=== PATIENT | female | born 1980 | race Two or more races ===

== ENCOUNTER 2021-03-14 15:06 | Emergency (ER) | payer BC, OTHER, SELFPAY ==
--- NOTE | 2021-03-14 | ECG_ITS ---
Test Reason : GENERAL Blood Pressure : / mmHG Vent. Rate : 086 BPM Atrial Rate : 086 BPM P-R Int : 124 ms QRS Dur : 078 ms QT Int : 370 ms P-R-T Axes : 074 001 018 degrees QTc Int : 442 ms Normal sinus rhythm Normal ECG When compared with ECG of 24-MAR-2019 14:55, No significant change was found Referred By: Generic ED Physician Electronically Signed By:JUAN FIELD
--- NOTE | ~2021-03-14 | XR_ITS ---
EXAMINATION: XR CHEST CLINICAL INFORMATION: Cough, shortness of breath COMPARISON: 12/03/2019 TECHNIQUE: 2 views of the chest were obtained. FINDINGS: The right middle lobe pneumonia previously seen has completely resolved and there is now no significant abnormality noted involving the heart, lungs, mediastinum, bony thorax or soft tissues. XR/XR chest 2V IMPRESSION: Normal chest. Resolved right pneumonia
[2021-03-14 15:21] VITALS: BP 138/103; PULSE 99; RESP 20; TEMP 36.9; O2SAT 93; BMI 30.9
[2021-03-14 16:00] VITALS: BP 137/72; PULSE 85; RESP 16; TEMP 36.7; O2SAT 99
--- NOTE | 2021-03-14 16:04 | ED_ITS ---
HPI - General Adult General Chief complaint: General Medical Stated complaint: Chest pain/Cough Time Seen by Provider: 03/14/21 15:55 Source: patient Mode of arrival: ambulatory Limitations: no limitations History of Present Illness HPI narrative: 40-year-old female with a history of seasonal allergies here with complaints of dry cough, some shortness of breath and chest wall pain for the last few days. The patient has had coughing, sneezing, itchy eyes and runny nose for the last 2-3 weeks. She contributes this to her allergies. No recent travel. No OCP use. No history of blood clots. Received COVID vaccine 3 weeks ago Related Data Previous Rx's Medication Instructions Recorded benzonatate [Tessalon Perles] 100 mg PO BID PRN #10 cap 03/14/21 cetirizine 5 mg PO DAILY #30 tab 03/14/21 prednisone 40 mg PO DAILY #10 tab 03/14/21 Allergies Allergy/AdvReac Type Severity Reaction Status Date / Time No Known Allergies Allergy Unverified 07/23/20 15:25 [No Known Allergies*] ciprofloxacin [Ciloxan] AdvReac Unknown eye burning Verified 03/12/20 00:00 Review of Systems Review of Systems: Yes all other systems are reviewed and are negative Constitutional: Constitutional: Reports no additional constitutional compla ints, Denies body ache(s), Denies chills, Denies fever(s), Denies headache(s) and Denies weakness Eyes: Eyes: Reports no additional eye complaints and Denies change in vision ENT: Reports system reviewed and no additional complaints, except as documented, Denies dizziness, Denies headache(s), Denies nasal congestion, Denies nasal discharge and Denies neck pain Cardiovascular: Cardiovascular: Reports no additional cardiovascular complaints, Reports chest pain, Denies leg edema and Reports dyspnea Respiratory: Respiratory: Reports no additional respiratory complaints, Reports cough and Reports dyspnea Gastrointestinal: Gastrointestinal: Reports no additional gastrointestinal complaints, Denies abdominal pain, Denies diarrhea, Denies nausea and Denies vomiting Genitourinary: Genitourinary: Reports no additional female genitourinary complaints and Denies urinary incontinence Musculoskeletal: Musculoskeletal: Reports no additional musculoskeletal complaints, Denies back pain, Denies arthralgias, Denies joint swelling, Denies neck pain, Denies numbness and Denies tingling Integumentary/Breasts: Skin/Breast: Reports system reviewed and no additional complaints, except as docu and Denies rash Neurologic: Reports system reviewed and no additional complaints, except as documented, Denies Abnormal speech present, Denies dizziness, Denies headache(s), Denies numbness, Denies tingling and Denies weakness PMFSH Past Medical History Attestation statement: The following information was validated with the patient. Source: old records reviewed and nursing notes reviewed Surgical History Previous section S/P ACL reconstruction Social History Social History Advance Directives: No Advance Directives Information Provided: No Patient : No Physical Exam Vital Signs: Vital Signs: Last Vital Signs Temp 98.1 F 03/14/21 16:00 Pulse 85 03/14/21 16:00 Resp 16 03/14/21 16:00 BP 137/72 03/14/21 16:00 Pulse Ox 99 03/14/21 16:00 Body Mass Index 30.9 Const: General: cooperative, healthy appearing, comfortable and no acute distress Orientation/consciousness: patient oriented x3 Limitations: no limitations HENMT: Head: Yes normal to inspection Ears: hearing grossly normal bilaterally General nose exam: Normal external nose present Face and sinus: Yes normal facial exam Mouth: Normal oral and palatal mucosa present Throat: Yes posterior oropharynx normal Eyes: Other: Conjunctiva are injected. There is some mild swelling around the eyes with some clear drainage General: appearance normal, both eyes and all related structures Pupils: Equal, round and reactive pupils present Neck: Neck: Yes normal visual inspection, Yes full ROM and Yes no lymphadenopathy Chest: Other: Chest tender to palpate Chest palpation & inspection: normal inspection of the chest Resp: Other: Mild expiratory wheezing, prolonged expiration Effort & Inspection: normal respiratory effort Cardio: Rate: regular rate Rhythm: regular rhythm Peripheral pulses: Peripheral pulses 2+ throughout GI: Inspection: Yes normal to inspection Palpation (GI): Soft to palpation and nontender Auscultation: normal bowel sounds Back/Spine/Pelvis: Thoracic/Lumbar Spine: thoracic and lumbar spine normal to inspection Skin: General skin exam: no rashes or lesions noted Neuro: General: patient oriented x3, no focal motor deficits and normal sensa tion to monofilament Cranial nerves: Yes Equal, round and reactive pupils present Cognition (Neuro): normal cognition Speech: No Abnormal speech present Gait exam (Neuro): Normal gait present Motor exam (neuro): 5/5 m otor strength present throughout Extrem: General: Yes normal to inspection, Yes no pedal edema and Yes no calf tenderness Course Course Course Narrative: 40 yo female here with complaints of some reproducible chest wall pain with associated cough and mild shortness of breath. Patient also complaining of some allergic rhinitis symptoms. Will check chest x-ray, EKG, COVID screen, labs. Provide analgesia 1800-chest x-ray negative. EKG shows no ischemic changes. Labs are unremar kable. COVID screen negative. Blood pressure trending down. Likely viral URI with allergic rhinitis. Reviewed findings with patient. Reviewed feeling improved after receiving albuterol 2 puffs. Will send home with MDI. Reviewed worrisome signs and symptoms when to return to the emergency department. Comfortable discharge home. Medical Decision Making MDM Narrative Medical decision making narrative: Pneumonia, pe, viral syndrome, acs X-ray shows no underlying pneumonia. Less likely PE with no hypoxia, tachypnea, tachycardia and clinical signs and symptoms concerning for dvt. PERC 0. Less likely ACS with symptoms greater than 24 hours with a negative troponin and EKG which shows no ischemic changes Medical Records Medical records reviewed: Yes I reviewed the patient's medical records. Lab Data Lab results reviewed: Yes I reviewed the patient's lab results. Result diagrams: 03/14/21 16:26 03/14/21 16:26 Labs: Lab Results 03/14/21 03/14/21 03/14/21 Range/Units 16:26 16:26 16:26 WBC 9.0 (4.8-10.8) X10*3/uL RBC 3.85 L (4.20-5.50) X10*6/uL Hgb 12.8 (12.0-16.0) g/dl Hct 37.4 (37-47) % MCV 97.1 (80-98) fL MCH 33.2 H (27.0-33.0) pg MCHC 34.2 (31.0-35.0) g/dl RDW 12.5 (11.0-16.0) % Plt Count 233 (160-400) X10*3/uL MPV 10.9 (9.4-12.3) fL Immature Gran % (Auto) 0.3 (0.0-0.4) % Neut % (Auto) 63.1 (45-73) % Lymph % (Auto) 25.9 (20-40) % Cecil % (Auto) 5.5 (2-11) % Eos % (Auto) 4.8 H (0-4) % Baso % (Auto) 0.4 (0-2) % Lymph # (Auto) 2.3 (1.2-4.9) X10*3/uL [place] # (Auto) 0.5 (0.1-1.2) X10*3/uL Eos # (Auto) 0.4 (0.0-0.4) X10*3/uL Baso # (Auto) 0.0 (0.0-0.2) X10*3/uL Abs Immat Gran (auto) 0.03 (0.00-0.03) X10*3/uL Absolute Neuts (auto) 5.7 (2.0-8.3) X10*3/uL Absolute Nucleated RBC 0.000 (0.0-0.012) X10*3/uL Nucleated RBC % (auto) 0.0 (0.0-0.2) /100WBC PT 11.3 (10.8-13.0) SEC INR 1.0 (0.9-1.1) Sodium 140 (135-145) mmol/L Potassium 3.8 (3.3-5.1) mmol/L Chloride 108 (96-108) mmol/L Carbon Dioxide 23 (22-29) mmol/L Anion Gap 13 (12-20) BUN 15 (9-16) mg/dL Creatinine 0.86 (0.5-1.4) mg/dL Estim Creat Clear Calc 90.8 Estimated GFR > 60 Random Glucose 91 (60-115) mg/dL Calcium 8.9 (8.4-10.2) mg/dL Magnesium 2.0 (1.6-2.6) mg/dL Total Bilirubin 0.7 (0.0-1.0) mg/dL Direct Bilirubin 0.2 (0.0-0.5) mg/dL AST 72 H (5-31) U/L ALT 113 H (0-31) U/L Alkaline Phosphatase 89 (39-117) U/L Troponin I High Sens (<3.5-17.0) ng/L Total Protein 6.9 (6.5-8.0) g/dL Albumin 4.3 (3.5-5.0) g/dL COVID-19 (NAS) (Negative) COVID-19 Clin Com 03/14/21 03/14/21 Range/Units 16:26 16:27 WBC (4.8-10.8) X10*3/uL RBC (4.20-5.50) X10*6/uL Hgb (12.0-16.0) g/dl Hct (37-47) % MCV (80-98) fL MCH (27.0-33.0) pg MCHC (31.0-35.0) g/dl RDW (11.0-16.0) % Plt Count (160-400) X10*3/uL MPV (9.4-12.3) fL Immature Gran % (Auto) (0.0-0.4) % Neut % (Auto) (45-73) % Lymph % (Auto) (20-40) % [place] % (Auto) (2-11) % Eos % (Auto) (0-4) % Baso % (Auto) (0-2) % Lymph # (Auto) (1.2-4.9) X10*3/uL Cecil # (Auto) (0.1-1.2) X10*3/uL Eos # (Auto) (0.0-0.4) X10*3/uL Baso # (Auto) (0.0-0.2) X10*3/uL Abs Immat Gran (auto) (0.00-0.03) X10*3/uL Absolute Neuts (auto) (2.0-8.3) X10*3/uL Absolute Nucleated RBC (0.0-0.012) X10*3/uL Nucleated RBC % (auto) (0.0-0.2) /100WBC PT (10.8-13.0) SEC INR (0.9-1.1) Sodium (135-145) mmol/L Potassium (3.3-5.1) mmol/L Chloride (96-108) mmol/L Carbon Dioxide (22-29) mmol/L Anion Gap (12-20) BUN (9-16) mg/dL Creatinine (0.5-1.4) mg/dL Estim Creat Clear Calc Estimated GFR Random Glucose (60-115) mg/dL Calcium (8.4-10.2) mg/dL Magnesium (1.6-2.6) mg/dL Total Bilirubin (0.0-1.0) mg/dL Direct Bilirubin (0.0-0.5) mg/dL AST (5-31) U/L ALT (0-31) U/L Alkaline Phosphatase (39-117) U/L Troponin I High Sens < 3.5 (<3.5-17.0) ng/L Total Protein (6.5-8.0) g/dL Albumin (3.5-5.0) g/dL COVID-19 (NAS) Negative (Negative) COVID-19 Clin Com See Note Imaging Data Chest x-ray: Attestation: I personally reviewed and interpreted this imaging study as follows: Radiologist's impression: [facility] [place] [id number] ReportSigned Patient: Lina Pedersen LMR#: [id number]: 1980Acct:[id number]/Sex: 40 / FADM Date: 03/14/21Loc: [address]: Ordering Physician: CJ RENEE NP Date of Service: 03/14/21 Procedure(s): XR chest 2V Accession Number(s): [id number] cc: CJ RENEE NP~ EXAMINATION: XR CHEST CLINICAL INFORMATION: Cough, shortness of breath COMPARISON: 12/03/2019 TECHNIQUE: 2 views of the chest were obtained. FINDINGS: The right middle lobe pneumonia previously seen has completely resolved and there is now no significant abnormality noted involving the heart, lungs, mediastinum, bony thorax or soft tissues. XR/XR chest 2V IMPRESSION: Normal chest. Resolved right pneumonia ECG Data Attestation: I personally reviewed and interpreted this ECG as follows: Interpretation: Normal sinus rhythm with a rate of 86, normal NE, normal QRS, normal QTC Discharge Plan Discharge Clinical Impression: Viral URI, Allergic rhinitis Patient Disposition: Home, Self-Care Instructions: Acute Bronchitis (ED), Allergies (ED) Additional Instructions: Increase fluids, rest Prescriptions: New prednisone 20 mg tablet 40 mg PO DAILY Qty: 10 RF: 0 cetirizine 5 mg tablet 5 mg PO DAILY Qty: 30 RF: 0 benzonatate [Tessalon Perles] 100 mg capsule 100 mg PO BID PRN (Reason: cough) Qty: 10 RF: 0 Referrals: Po,Karen Bryan MD [Primary Care Provider] - 2 days Stand Alone Forms: Work/School Release
[2021-03-14 16:35] LABS: MANUAL DIFF FLAG NO
[2021-03-14] MEDS: Benzonatate 100 MG CAPSULE 200 MG PO (16:36)
[2021-03-14] MEDS: Ketorolac Tromethamine 30 MG/ML VIAL IVPUSH (16:36)
[2021-03-14 16:37] LABS: Basophils Percent Auto 0.4 % (0-2); Eosinophils Absolute Auto 0.4 X10*3/uL (0.0-0.4); Eosinophils Percent Auto 4.8 % (0-4); Hematocrit 37.4 % (37-47); Hemoglobin 12.8 g/dl (12.0-16.0); Imm Gran Abs Auto 0.03 X10*3/uL (0.00-0.03); Imm Gran Pct Auto 0.3 % (0.0-0.4); Lymphocytes Absolute Auto 2.3 X10*3/uL (1.2-4.9); Lymphocytes Percent Auto 25.9 % (20-40); Mean Corpuscular HGB Conc 34.2 g/dl (31.0-35.0); Mean Corpuscular Hemoglobin 33.2 pg (27.0-33.0); Mean Corpuscular Volume 97.1 fL (80-98); Mean Platelet Volume 10.9 fL (9.4-12.3); Monocytes Absolute Auto 0.5 X10*3/uL (0.1-1.2); Monocytes Percent Auto 5.5 % (2-11); Neutrophils Absolute Auto 5.7 X10*3/uL (2.0-8.3); Neutrophils Percent Auto 63.1 % (45-73); Platelet Count 233 X10*3/uL (160-400); Red Blood Count 3.85 X10*6/uL (4.20-5.50); Red Cell Distribution Width 12.5 % (11.0-16.0)
[2021-03-14 16:48] LABS: Prothrombin Time 11.3 SEC (10.8-13.0)
[2021-03-14 16:50] LABS: COVID-19 Test Negative (Negative); IDNOW Serial# 9DD0AD1C
[2021-03-14 17:01] LABS: Alanine Aminotransferase 113 U/L (0-31); Albumin Level 4.3 g/dL (3.5-5.0); Alkaline Phosphatase 89 U/L (39-117); Anion Gap 13 (12-20); Aspartate Amino Transferase 72 U/L (5-31); Bilirubin Direct 0.2 mg/dL (0.0-0.5); Bilirubin Total 0.7 mg/dL (0.0-1.0); Blood Urea Nitrogen 15 mg/dL (9-16); Calcium 8.9 mg/dL (8.4-10.2); Carbon Dioxide 23 mmol/L (22-29); Chloride 108 mmol/L (96-108); Creatinine Clr Calc Pharmacy 90.8; Estimated Glomerular Filt Rate > 60; Glucose Random 91 mg/dL (60-115); Potassium 3.8 mmol/L (3.3-5.1); Sodium 140 mmol/L (135-145); Total Protein 6.9 g/dL (6.5-8.0)
[2021-03-14 17:06] LABS: Troponin-I High Sensitivity < 3.5 ng/L (<3.5-17.0)
[2021-03-14] MEDS: Albuterol Sulfate 90 MCG 8 GM INHALER 2 PUFF INHALE (17:25)
== END 2021-03-14 18:20 | disposition home or self-care (01) ==
PROVIDERS: Nurse Practitioner Family; Emergency Provider Emergency Medicine; PCP Internal Medicine
DX: J06.9 Acute upper respiratory infection, unspecified (principal); J30.9 Allergic rhinitis, unspecified; R07.9 Chest pain, unspecified; R05 Cough; Z20.822 Contact with and (suspected) exposure to COVID-19; Z79.899 Other long term (current) drug therapy
CPT/HCPCS: 36415; 71046; 80048; 80076; 83735; 84484; 85025; 85610; 87635; 93005; 96374; 99284; J1885

== ENCOUNTER 2021-08-13 08:05 | Outpatient (REF) | payer OTHER, BC, SELFPAY ==
--- NOTE | ~2021-08-13 | XR_ITS ---
EXAMINATION: XR KNEE, LEFT CLINICAL INFORMATION: Left knee pain. COMPARISON: 06/10/2019 TECHNIQUE: Three views of the left knee. FINDINGS: There is no evidence of acute fracture or dislocation of the left knee. No left knee effusion is appreciated. There is minimal narrowing of the medial joint space compartment with some marginal spurring. There is some mild spurring undersurface of the patella. Post surgical change appears present in the distal femur and proximal tibia related to anterior collateral ligament surgery. XR/XR knee LT 3V IMPRESSION: No acute fracture or dislocation of the left knee. Mild degenerative change about the patellofemoral joint and medial joint space compartment.
== END 2021-08-13 08:06 | disposition home or self-care (01) ==
LOC: HO.XRAY 08:05
PROVIDERS: PCP Internal Medicine; Visit Provider Nurse Practitioner Family
DX: M25.562 Pain in left knee (principal)
CPT/HCPCS: 73562

== ENCOUNTER → 2021-08-26 14:43 | Outpatient (BNVA) | payer OTHER, BC, SELFPAY | PROVIDERS: Visit Provider Orthopaedic Surgery | DX: M23.8X2 Other internal derangements of left knee (principal); M25.562 Pain in left knee; Z87.891 Personal history of nicotine dependence; Z98.890 Other specified postprocedural states; Z88.1 Allergy status to other antibiotic agents | CPT/HCPCS: 99212 ==

== ENCOUNTER 2021-12-24 08:06 | Outpatient (REF) | payer BC, OTHER, SELFPAY ==
--- NOTE | ~2021-12-24 | MR_ITS ---
EXAMINATION: MR KNEE WITHOUT CONTRAST, LEFT CLINICAL INFORMATION: Left knee pain. COMPARISON: Radiographs 08/13/2021. MRI 09/23/2019. TECHNIQUE: MRI of the knee without contrast was performed using routine sequences on a high-field scanner. FINDINGS: MENISCI: Medial Meniscus: Intact Lateral Meniscus: Intact LIGAMENTS: Cruciate: The ACL graft appears to be intact. There is prominent postsurgical metallic artifact partially obscuring visualization. There is an 8 mm rounded focus of intermediate signal anterior to the distal graft on sagittal image 12 which may represent synovitis, frayed graft fibers and/or scarring. The posterior cruciate ligament appears intact. Collateral: Intact EXTENSOR MECHANISM: Intact ARTICULAR CARTILAGE/BONE: Patellofemoral Compartment: Minimal focal cartilage signal heterogeneity of the medial trochlea inferiorly. Medial Compartment: Minimal cartilage signal heterogeneity along the lateral aspect of the weightbearing femoral condyle. Lateral Compartment: Normal JOINT FLUID AND BURSAE: Trace joint effusion. Mild scarring along the posterior inferior aspect of Hoffa's fat pad. MR/MR knee LT wo con IMPRESSION: 1. The ACL graft appears predominantly intact, partially obscured by micrometallic artifact. Anterior to the distal graft is a rounded focus of intermediate signal which could represent frayed graft fibers, synovitis and/or scarring. Trace joint effusion. 2. No definite meniscal tear.
== END 2021-12-24 08:07 | disposition home or self-care (01) ==
LOC: HO.MRI 08:06
PROVIDERS: Visit Provider Orthopaedic Surgery
DX: M23.8X2 Other internal derangements of left knee (principal); M25.562 Pain in left knee
CPT/HCPCS: 73721

== ENCOUNTER → 2022-01-13 08:51 | Outpatient (BNVA) | payer BC, OTHER, SELFPAY | PROVIDERS: PCP Internal Medicine; Visit Provider Orthopaedic Surgery ==

== ENCOUNTER 2022-05-31 12:39 | Outpatient (REF) | payer BC, OTHER, SELFPAY ==
[2022-05-31 13:24] LABS: Influenza A PCR NEGATIVE (Negative); Influenza B PCR NEGATIVE (Negative); Resp Syncy Virus RNA Qual PCR NEGATIVE (Negative); SARS COV2 PCR INHOUSE POSITIVE (Negative)
== END 2022-05-31 12:40 | disposition home or self-care (01) ==
LOC: HO.LNP 12:39
PROVIDERS: Visit Provider Physician Assistant
DX: Z20.822 Contact with and (suspected) exposure to COVID-19 (principal)
CPT/HCPCS: 0241U

== ENCOUNTER 2022-06-02 16:31 | Emergency (ER) | payer BC, SELFPAY ==
--- NOTE | ~2022-06-02 | XR_ITS ---
EXAMINATION: XR CHEST CLINICAL INFORMATION: Chest tightness and difficulty breathing COMPARISON: Chest x-ray 03/14/2021 TECHNIQUE: Frontal view of the chest was obtained. FINDINGS: The lungs are clear. No airspace consolidation, pleural effusion, or pneumothorax. The cardiomediastinal silhouette is within normal limits. No acute osseous injury. XR/XR chest 1V IMPRESSION: No acute pulmonary process.
[2022-06-02 18:01] VITALS: BP 128/99; PULSE 105; RESP 18; TEMP 36.6; O2SAT 97; BMI 32.5
--- NOTE | 2022-06-02 18:05 | ECG_ITS ---
Test Reason : CHEST PAIN Blood Pressure : / mmHG Vent. Rate : 097 BPM Atrial Rate : 097 BPM P-R Int : 120 ms QRS Dur : 078 ms QT Int : 350 ms P-R-T Axes : 071 016 035 degrees QTc Int : 444 ms Normal sinus rhythm Nonspecific ST abnormality Borderline ECG When compared with ECG of 14-MAR-2021 16:08, No significant change was found Referred By: Generic ED Physician Electronically Signed By:JUAN FIELD
[2022-06-02 18:21] LABS: MANUAL DIFF FLAG NO
[2022-06-02 18:30] LABS: Basophils Percent Auto 0.3 % (0-2); Eosinophils Percent Auto 0.5 % (0-4); Hematocrit 36.7 % (37.0-47.0); Hemoglobin 12.4 g/dl (12.0-16.0); Imm Gran Abs Auto 0.06 X10*3/uL (0.00-0.03); Imm Gran Pct Auto 0.7 % (0.0-0.4); Lymphocytes Absolute Auto 1.9 X10*3/uL (1.2-4.9); Lymphocytes Percent Auto 21.5 % (20-40); Mean Corpuscular HGB Conc 33.8 g/dl (31.0-35.0); Mean Corpuscular Hemoglobin 30.5 pg (27.0-33.0); Mean Corpuscular Volume 90.4 fL (80.0-98.0); Mean Platelet Volume 10.9 fL (9.4-12.3); Monocytes Absolute Auto 0.5 X10*3/uL (0.1-1.2); Monocytes Percent Auto 6.2 % (2-11); Neutrophils Absolute Auto 6.2 x10*3/uL (2.0-8.3); Neutrophils Percent Auto 70.8 % (45-73); Platelet Count 259 X10*3/uL (160-400); Red Blood Count 4.06 X10*6/uL (4.20-5.50); White Blood Count 8.7 X10*3/uL (4.8-10.8)
[2022-06-02 18:35] LABS: Anion Gap 14 (12-20); Blood Urea Nitrogen 17 mg/dL (9-16); Calcium 9.2 mg/dL (8.4-10.2); Carbon Dioxide 23 mmol/L (22-29); Chloride 106 mmol/L (96-108); Estimated Glomerular Filt Rate > 60; Glucose Random 93 mg/dL (60-115); Potassium 3.6 mmol/L (3.3-5.1); Sodium 139 mmol/L (135-145)
[2022-06-02 18:43] LABS: Troponin-I High Sensitivity < 3.5 ng/L (<3.5-17.0)
--- NOTE | 2022-06-02 23:35 | ED_ITS ---
HPI - SOB/Dyspnea General Chief Complaint: Dyspnea Stated Complaint: diff breathing Time Seen by Provider: 06/02/22 23:35 Source: patient Mode of arrival: ambulatory Limitations: no limitations History of Present Illness HPI Narrative: Patient COVID positive over the past 10 days now with worsening cough and anxiet y elicited complaint: shortness of breath and cough Onset (ago): week(s) Context: recent illness Timing: constant Severity: mild Exacerbating factors: lying flat Relieving factors: nothing Associated symptoms: denies other symptoms Related Data Previous Rx's Medication Instructions Recorded cetirizine 5 mg tablet 5 mg PO DAILY #30 tabs 03/14/21 phentermine 37.5 mg capsule 37.5 mg PO DAILY 30 days #30 caps 06/04/21 sodium chloride 0.65 % nasal spray 2 spray intranasal Q2H PRN dry 06/04/21 aerosol (Saline Nasal) nasal passages 30 days #60 mL hydrocortisone 2.5 % topical cream 1 appl topical BID PRN skin 10/15/21 irritation #20 grams nitrofurantoin 100 mg PO BID 5 days #10 caps 05/31/22 monohydrate/macrocrystals 100 mg capsule (Macrobid) hydroxyzine HCl 25 mg tablet 25 mg PO TID PRN anxiety #20 tabs 06/02/22 [id number] 2.5 20 ml PO Q4H PRN cough #118 mL 06/02/22 mg-5 mg-50 mg/5 mL oral liquid (Robitussin Cough and Cold CF) Allergies Allergy/AdvReac Type Severity Reaction Status Date / Time ciprofloxacin [Ciloxan] AdvReac Unknown eye burning Verified 05/31/22 09:08 Review of Systems Constitutional: Constitutional: Reports no additional constitutional complaints Eyes: Eyes: Reports no additional eye complaints ENT: Denies dizziness Cardiovascular: Cardiovascular: Reports no additional cardiovascular comp laints Respiratory: Respiratory: Reports as per HPI Gastrointestinal: Gastrointestinal: Reports no additional gastrointestinal complaints Genitourinary: Genitourinary: Reports no additional female genitourinary complaints Musculoskeletal: Musculoskeletal: Reports no additional musculoskeletal complaints Integumentary/Breasts: Skin/Breast: Denies rash Neurologic: Reports system reviewed and no additional complaints, except as documented, Denies dizziness and Denies Sensory deficit (Neuro) Psychiatric: Psychiatric: Denies anxiety [facility] Past Medical History Surgical History History of knee surgery Previous section S/P ACL reconstruction Family History Family History Mother No problems noted. Father No problems noted. Social History Social History Housing: House Alcohol intake: never Patient Tobacco Use Status: Former Tobacco user (10 years ago) Quit Date: 10 years ago e-Cigarette/Vaping Use: Never Used Second Hand Smoke Exposure: No service: No Current occupational status: employed Physical Exam Vital Signs: Vital Signs: Last Vital Signs Temp 97.9 F 06/02/22 18:01 Pulse 105 H 06/02/22 18:01 Resp 18 06/02/22 18:01 BP 128/99 H 06/02/22 18:01 Pulse Ox 97 06/02/22 18:01 O2 Del Method 06/02/22 18:01 BMI result Body Mass Index 32.5 Const: Other: continually coughing General: healthy appearing Nutritional Appearance: a verage body habitus Orientation/consciousness: oriented to person and patient oriented x3 Limitations: no limitations HEENT: Head: Yes normal to inspection Ears: external ears normal General nose exam: Normal external nose present Mouth: Normal oral and palatal mucosa present and oropharynx normal Throat: Yes posterior oropharynx normal Eyes: General: appearance normal, both eyes and all related structures Neck: Other: supple Neck: Yes normal visual inspection Chest: Chest palpation & inspection: normal inspection of the chest Resp: Auscultation: clear to auscultation bilaterally Cardio: Jugular venous distension: no JVD Rate: regular rate Rhythm: regular rhythm Heart sounds: S1 normal heart sound present and S2 normal heart sound present GI: Inspection: Yes normal to inspection Palpation (GI): Soft to palpation, nontender and No hepatosplenomegaly present Auscultation: normal bowel sounds : General: Yes no CVA tenderness Back/Spine/Pelvis: Back: no CVA tenderness Skin: General skin exam: no rashes or lesions noted Neuro: General: oriented to person and patient oriented x3 Cranial nerves: Yes CN's II-XII intact bilaterally Motor exam (neuro): 5/5 motor strength present throughout Sensory Exam: No Sensory deficit (Neuro) Extrem: General: Yes normal to inspection Psych: Appearance: grossly normal Course Reevaluation(s) Reevaluation #1: patient with normal vitals, O2, and cxr. Will start robitussin for cough and hydroxyzine for anxiety Time: 23:43 MDM - SOB/Dyspnea Lab Data Result diagrams: 06/02/22 18:15 06/02/22 18:15 Labs: Lab Results 06/02/22 06/02/22 06/02/22 Range/Units 18:15 18:15 18:15 WBC 8.7 (4.8-10.8) X10*3/uL RBC 4.06 L (4.20-5.50) X10*6/uL Hgb 12.4 (12.0-16.0) g/dl Hct 36.7 L (37.0-47.0) % MCV 90.4 (80.0-98.0) fL MCH 30.5 (27.0-33.0) pg MCHC 33.8 (31.0-35.0) g/dl RDW 12.0 (11.0-16.0) % Plt Count 259 (160-400) X10*3/uL MPV 10.9 (9.4-12.3) fL Immature Gran % (Auto) 0.7 H (0.0-0.4) % Neut % (Auto) 70.8 (45-73) % Lymph % (Auto) 21.5 (20-40) % [place] % (Auto) 6.2 (2-11) % Eos % (Auto) 0.5 (0-4) % Baso % (Auto) 0.3 (0-2) % Lymph # (Auto) 1.9 (1.2-4.9) X10*3/uL [place] # (Auto) 0.5 (0.1-1.2) X10*3/uL Eos # (Auto) 0.0 (0.0-0.4) X10*3/uL Baso # (Auto) 0.0 (0.0-0.2) X10*3/uL Abs Immat Gran (auto) 0.06 H (0.00-0.03) X10*3/uL Absolute Neuts (auto) 6.2 (2.0-8.3) x10*3/uL Absolute Nucleated RBC 0.000 (0.0-0.012) X10*3/uL Nucleated RBC % (auto) 0.0 (0.0-0.2) /100WBC Sodium 139 (135-145) mmol/L Potassium 3.6 (3.3-5.1) mmol/L Chloride 106 (96-108) mmol/L Carbon Dioxide 23 (22-29) mmol/L Anion Gap 14 (12-20) BUN 17 H (9-16) mg/dL Creatinine 0.81 (0.5-1.4) mg/dL Estim Creat Clear Calc 98.0 Estimated GFR > 60 Random Glucose 93 (60-115) mg/dL Calcium 9.2 (8.4-10.2) mg/dL Troponin I High Sens < 3.5 (<3.5-17.0) ng/L Imaging Data Chest x-ray: Radiologist's impression: FINDINGS: The lungs are clear. No airspace consolidation, pleural effusion, or pneumothorax. The cardiomediastinal silhouette is within normal limits. No acute osseous injury. XR/XR chest 1V IMPRESSION: No acute pulmonary process. ? Discharge Plan Discharge Clinical Impression: COVID-19, Anxiety Patient Disposition: Home, Self-Care Instructions: Anxiety (ED), COVID-19 (Coronavirus Disease 2019) (ED) Prescriptions: New Robitussin Cough and Cold CF 2.5-5-50 mg/5 mL liquid 20 ml PO Q4H PRN (Reason: cough) Qty: 118 0RF hydroxyzine HCl 25 mg tablet 25 mg PO TID PRN (Reason: anxiety) Qty: 20 0RF No Action phentermine 37.5 mg capsule 37.5 mg PO DAILY 30 Days Qty: 30 0RF Rx Instructions: must administer 30 minutes before or 1-2 hours after breakfast sodium chloride [Saline Nasal] 0.65 % aerosol,spray 2 spray intranasal Q2H PRN (Reason: dry nasal passages) 30 Days Qty: 60 1RF cetirizine 5 mg tablet 5 mg PO DAILY Qty: 30 0RF hydrocortisone 2.5 % cream 1 appl topical BID PRN (Reason: skin irritation) Qty: 20 0RF nitrofurantoin monohyd/m-cryst [Macrobid] 100 mg capsule 100 mg PO BID 5 Days Qty: 10 0RF Rx Instructions: must administer with a meal/food Referrals: Grant,Karen Bryan MD [Primary Care Provider] - 1 week
[2022-06-03] MEDS: guaiFENesin 200 MG/10 ML 10 ML LIQUID 20 ML PO (00:34)
[2022-06-03] MEDS: hydrOXYzine HCL 25 MG TABLET PO (00:34)
== END 2022-06-03 00:37 | disposition home or self-care (01) ==
PROVIDERS: Emergency Provider Emergency Medicine; PCP Internal Medicine
DX: U07.1 COVID-19 (principal); R07.89 Other chest pain; R06.02 Shortness of breath; R05.9 Cough, unspecified; F41.1 Generalized anxiety disorder; F43.0 Acute stress reaction; Z79.899 Other long term (current) drug therapy; Z87.891 Personal history of nicotine dependence
CPT/HCPCS: 36415; 71045; 80048; 84484; 85025; 93005; 99282; 99283

== ENCOUNTER 2022-08-01 15:32 | Outpatient (REF) | payer BC, SELFPAY ==
[2022-08-02 06:06] LABS: CT PCR NOT DETECTED (Not Detect.); NG PCR NOT DETECTED (Not Detect.)
[2022-08-02 11:10] LABS: BV Int Neg Control Negative (Negative); BV Int Pos Control Positive (Positive)
[2022-08-05 03:52] LABS: HPV mRNA E6/E7 rflx Not Detected (Not Detected)
== END 2022-08-01 15:33 | disposition home or self-care (01) ==
LOC: HO.LNP 15:32
PROVIDERS: Visit Provider Advanced Practice Midwife
DX: Z01.419 Encounter for gynecological examination (general) (routine) without abnormal findings (principal); Z11.3 Encounter for screening for infections with a predominantly sexual mode of transmission
CPT/HCPCS: 87480; 87491; 87510; 87591; 87624; 87660; 88142

== ENCOUNTER 2022-08-26 13:58 | Outpatient (REF) | payer BC, SELFPAY ==
--- NOTE | ~2022-08-26 | MM_ITS ---
EXAMINATION: MM SCREENING DIGITAL BREAST TOMOSYNTHESIS, BILATERAL CLINICAL INFORMATION: Screening. Asymptomatic. The lifetime risk of breast cancer based on the Tyrer-Cuzick Model is 8.3%. COMPARISON: Mammography: None. TECHNIQUE: Digital breast tomosynthesis is performed in both the craniocaudal and mediolateral oblique views along with computer-aided detection (CAD). Synthesized 2-D images are generated from the tomosynthesis. FINDINGS: There are scattered areas of fibroglandular density (ACR BI-RADS breast composition Category b). The right breast study does not demonstrate any abnormal dominant mass or suspicious grouping of microcalcifications. Within the retroareolar region of the left breast on mediolateral oblique projection, there is question of a spiculated density for which spot compression film is recommended. No definite craniocaudal projection correlate is seen. MM/MM tomosynthesis screening BI IMPRESSION: Left breast density for further evaluation. ASSESSMENT: BI-RADS 0: Incomplete - Need Additional Imaging Evaluation RECOMMENDATION: 1. Additional views of the left breast. 2. Targeted ultrasound if warranted after review of the additional views. 3. Radiology department staff will contact the patient for additional imaging. This patient's information was entered into a reminder system with a target due date for their next mammogram.
== END 2022-08-26 13:59 | disposition home or self-care (01) ==
LOC: HO.MAMMO 13:58
PROVIDERS: Visit Provider Advanced Practice Midwife
DX: Z12.31 Encounter for screening mammogram for malignant neoplasm of breast (principal)
CPT/HCPCS: 77063; 77067

== ENCOUNTER → 2022-08-29 13:40 | Outpatient (BNVA) | payer BC, SELFPAY | PROVIDERS: PCP Obstetrics & Gynecology; Visit Provider Obstetrics & Gynecology | DX: Z30.433 Encounter for removal and reinsertion of intrauterine contraceptive device (principal) | CPT/HCPCS: 58300; 58301; J7298 ==

== ENCOUNTER 2022-09-06 14:29 | Outpatient (REF) | payer BC, SELFPAY ==
--- NOTE | ~2022-09-06 | MM_ITS ---
EXAMINATION: MM DIAGNOSTIC DIGITAL BREAST TOMOSYNTHESIS, LEFT CLINICAL INFORMATION: Recall from screening for question of architectural changes retroareolar breast on synthesized left MLO view. TC score 8%. COMPARISON: Mammography: 08/26/2022 (baseline) TECHNIQUE: Digital breast tomosynthesis is performed. 2D images are generated from the tomosynthesis. The following views are obtained: Spot MLO, standard ML. FINDINGS: There are scattered areas of fibroglandular density (ACR BI-RADS breast composition Category b). The additional views show no architectural abnormality or mass. The recent CC and MLO tomography shows no retroareolar architectural abnormality as well. Results are discussed with the patient at time of visit. MM/MM tomosynthesis added views L IMPRESSION: No architectural abnormality. No mammographic evidence of malignancy. ASSESSMENT: BI-RADS 1: Negative RECOMMENDATION: Routine annual mammography screening. This patient's information was entered into a reminder system with a target due date for their next mammogram.
== END 2022-09-06 14:30 | disposition home or self-care (01) ==
LOC: HO.MAMMO 14:29
PROVIDERS: Visit Provider Advanced Practice Midwife
DX: R92.2 Inconclusive mammogram (principal)
CPT/HCPCS: 77061; 77065

== ENCOUNTER 2023-09-13 10:58 | Outpatient (AMB) | payer BC, SELFPAY ==
--- NOTE | 2023-09-13 11:26 | MHC.PC.OV ---
Vital Signs 09/13/23 11:28 Height 5 ft 4 in Weight 202 lb 2 oz BMI 34.7 BP 120/80 Blood Pressure Location Lt brachial Position Sitting Intake Visit Reasons: Annual exam Intake Note: Patient is here today for a physical. 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: Not Required per policy Accompanied by: Self / Same As Patient Allergies ciprofloxacin [Ciloxan] Adverse Reaction (Unknown, Verified 09/13/23 11:28) eye burning Medication List - Last Reconciled 09/13/23 by Karen Burns MD cetirizine 5 mg PO DAILY fluticasone propionate 50 mcg/actuation 2 sprays intranasal DAILY hydrocortisone 2.5% 1 appl topical BID PRN hydroxyzine HCl 25 mg PO TID PRN levonorgestrel (Mirena) intrauterine sodium chloride 0.65% (Saline Nasal) 2 sprays intranasal Q2H PRN 30 days Tobacco use date assessed: 09/13/23 Dental Screening Dental Screen Date: 09/13/23 Did you have a dental visit in the last 12 months?: No Did you have a dental problem in the last 6 months where you did not have access to dental care?: No Was dental information given to patient?: Patient has dentist HPI Annual exam HPI Details 43-year-old obese female I am seeing for the 1st time has a history of anxiety. Patient is here for physical exam. ON LICENSE OF [facility] Medical History (Updated 09/13/23 @ 12:19 by Karen Burns MD) Other internal derangements of left knee Left knee pain Anxiety Breast cancer screening Counseling for control, intrauterine device COVID-19 Blepharitis, left eye Surgical History (Updated 09/13/23 @ 12:12 by Karen Burns MD) History of ankle surgery History of knee surgery Previous section S/P ACL reconstruction Family History Mother No problems noted. Father No problems noted. Social History (Updated 09/13/23 @ 12:13 by Karen Burns MD) Housing: House Alcohol intake: current Patient Tobacco Use Status: Former Tobacco user (10 years ago) Quit Date: 10 years ago Years Smoked: quit 2005 (1-2 years ) e-Cigarette/Vaping Use: Never Used Second Hand Smoke Exposure: No service: No Current occupational status: employed Cognitive needs: No Hearing needs: No Vision needs: No Female Reproductive History Menstrual Age of Menarche: 16 Questionnaire PHQ-9 Over the last 2 weeks, how often have you been bothered by any of the following problems? 1. Little interest or pleasure in doing things: not at all 2. Feeling down, depressed, or hopeless: not at all 3. Trouble falling or staying asleep, or sleeping too much: more than half the days 4. Feeling tired or having little energy: not at all 5. Poor appetite or overeating: not at all 6. Feeling bad about yourself - or that you are a failure or have let yourself or your family down: not at all 7. Trouble concentrating on things, such as reading the newspaper or watching television: not at all 8. Moving or speaking so slowly that other people could have noticed. Or the opposite - being so fidgety or restless that you have been moving around a lot more than usual: not at all 9. Thoughts that you would be better off or of hurting yourself in some way: not at all Total score: 2 Source: Developed by Drs. Nick Lock, Caprice Cardoso, Rufino Joyce and colleagues, with an educational abi from [employer]. Thrive Questionnaire Date Thrive assessed: 09/13/23 I am a: Patient What is your living situation today?: I have a steady place to live Within the past 12 months, did the food you bought not last and you didn't have the money to get more?: Never true Within the past 12 months, did you worry whether your food would run out before you got money to buy more?: Never true Do you have trouble paying for medicines?: No Do you have trouble getting transportation to medical appointments?: No Do you have trouble paying your heating and electricity bill?: No Do you have trouble taking care of your child, family member or friend?: No Do you have trouble with day-to-day activities such as bathing, preparing meals, shopping, managing finances, etc.?: No Are you currently unemployed and looking for a job?: No Are you interested in more education?: No Currently or been in a relationship where the following occur: no concerns reported AUDIT C Alcohol Use Questionnaire (AUDIT-C) 1. How often do you have a drink containing alcohol?: Never Total Score: 0 SIRISHA-7 AMB Questionnaire SIRISHA-7 Date SIRISHA - 7 assessed: 09/13/23 Feeling nervous, anxious, or on edge: 1 = Several days Not being able to stop or control worryin = Not at all Worrying too much about different things: 0 = Not at all Trouble relaxin = Not at all Being so restless that it is hard to sit still: 3 = Nearly every day Becoming easily annoyed or irritable: 0 = Not at all Feeling afraid as if something awful might happen: 0 = Not at all Total SIRISHA-7 score (0-4 normal; 5-9 mild; 10-14 moderate; 15-21 severe): 4 Source: Developed by Drs. Nick Lock, Caprice Cardoso, Rufino Joyce and colleagues, with an educational abi from [employer]. Review of Systems Const Denies poor appetite and Denies weakness Eyes Denies no additional complaints ENT Reports Normal hearing present, Denies dizziness, Denies nasal congestion, Denies tinnitus and Denies sore throat Card Denies chest pain, Denies syncope, Denies rapid heart rate and Denies dyspnea Resp Denies cough and Denies dyspnea GI Denies change in stool character, Reports constipation, Denies diarrhea, Denies nausea and Denies vomiting Denies urinary frequency, Denies difficulty voiding and Denies dysuria Neuro Reports Normal hearing present, Denies confusion, Denies dizziness, Denies syncope and Denies weakness Psych Denies confusion Physical exam (Primary Care) Vital Signs: Last Vital Signs BP 120/80 09/13/23 11:28 BMI result Body Mass Index 34.7 Tobacco/Smoking Status: Tobacco use Status Tobacco use date assessed 09/13/23 09/13/23 11:34 Patient Tobacco Use Status Former Tobacco user (10 09/13/23 11:34 years ago) e-Cigarette/Vaping Use Never Used 09/13/23 11:34 PHQ-9: PHQ-9 Score PHQ-9: Total score 2 09/13/23 11:34 Thrive Assessment: Date of Thrive Assessment Date Thrive assessed 09/13/23 09/13/23 11:34 Currently or been in a relationship where the following occur: no concerns reported Const General: alert and awake; No confusion Orientation/consciousness: No confusion HENMT Head: Yes normocephalic Ears: external ears normal and TM's normal bilaterally Face and sinus: Yes normal facial exam Mouth: moist mucous membranes Throat: Yes tonsils normal Eyes Conjunctivae: conjunctivae normal Pupils: Equal, round and reactive pupils present and Pupil accommodation reflex normal Direct Ophthalmoscopy: normal light reflex Neck Neck: No lymphadenopathy Thyroid: Thyroid normal Chest Chest palpation & inspection: normal inspection of the chest Resp Effort & Inspection: normal respiratory effort and no audible wheezes Auscultation: clear to auscultation bilaterally, no crackles, no wheezes and lung sounds not diminished Cardio Rate: regular rate Rhythm: regular rhythm Peripheral pulses: radial pulses present and dorsalis pedis present GI Palpation (GI): no masses Auscultation: normal bowel sounds and normoactive bowel sounds Rectal Exam - Female: deferred Skin General skin exam: no rashes or lesions noted Rashes: no rashes Neuro General: deep tendon reflexes 2+ bilaterally and No confusion Cranial nerves: Yes Equal, round and reactive pupils present, Yes Midline tongue present, Yes Normal hearing present and Yes Ability to bilaterally elevate shoulders present Cognition (Neuro): normal cognition Gait exam (Neuro): Normal gait present Motor exam (neuro): 5/5 motor strength present throughout Deep tendon reflexes (DTR's): Right brachioradialis reflex intensity grade: 2+, Left brachioradialis reflex intensity grade: 2+, Right patellar reflex intensity grade: 2+ and Left patellar reflex intensity grade: 2+ Extrem General: No edema Assessment and Plan Assessment & Plan (1) Annual physical exam: Code(s): Z00.00 - Encounter for general adult medical examination without abnormal findings (2) Obesity (BMI 30.0-34.9): Code(s): E66.9 - Obesity, unspecified Plan: Diet and exercise (3) Generalized anxiety disorder: Code(s): F41.1 - Generalized anxiety disorder Plan: Discussed about counseling and therapy (4) LFT elevation: Code(s): R79.89 - Other specified abnormal findings of blood chemistry Plan: Will need workup (5) Breast cancer screening by mammogram: Code(s): Z12.31 - Encounter for screening mammogram for malignant neoplasm of breast Plan: Reminded about mammogram (6) Vitiligo: Code(s): L80 - Vitiligo Orders: Orders Comprehensive Met. Panel Today Z00.00 - Encounter for general adult medical examination without abnormal findings Vitamin B12 and Folate Today Z00.00 - Encounter for general adult medical examination without abnormal findings Hepatitis B,C Profile Today R79.89 - Other specified abnormal findings of blood chemistry Lipid Panel Today E78.00 - Pure hypercholesterolemia, unspecified, R79.89 - Other specified abnormal findings of blood chemistry T Spot TB Today Z00.00 - Encounter for general adult medical examination without abnormal findings Complete Blood Count Auto Diff Today Z00.00 - Encounter for general adult medical examination without abnormal findings Free T4 (Free Thyroxine) Today Z00.00 - Encounter for general adult medical examination without abnormal findings Thyroid Stimulating Hormone Today Z00.00 - Encounter for general adult medical examination without abnormal findings US abdomen complete Today R79.89 - Other specified abnormal findings of blood chemistry Referrals Dermatology Referral L80 - Vitiligo Medications: New semaglutide (weight loss) (Wegovy) administer weeks 1 through 4 of therapy 0.25 mg (0.5 mL) subcut QWEEK 2 mL 1RF E66.9 - Obesity, unspecified Coding Level of Care Code Est Pt Prev Care 40-64y(55733) Diagnoses Annual physical exam Z00.00 Obesity (BMI 30.0-34.9) E66.9 Generalized anxiety disorder F41.1 LFT elevation R79.89 Breast cancer screening by mammogram Z12.31 Vitiligo L80
[2023-09-13 11:28] VITALS: BP 120/80; BMI 34.7
== END 2023-09-13 12:36 | disposition home or self-care (01) ==
PROVIDERS: Visit Provider Internal Medicine
DX: Z00.00 Encounter for general adult medical examination without abnormal findings (principal); E66.9 Obesity, unspecified; F41.1 Generalized anxiety disorder; Z68.34 Body mass index [BMI] 34.0-34.9, adult; R79.89 Other specified abnormal findings of blood chemistry; Z12.31 Encounter for screening mammogram for malignant neoplasm of breast; L80 Vitiligo
CPT/HCPCS: 99396

== ENCOUNTER 2023-11-28 13:16 | Outpatient (AMB) | payer BC, SELFPAY ==
--- NOTE | 2023-11-28 13:16 | A.OFFPC_ITS ---
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 per policy Accompanied by: Self / Same As Patient Allergies ciprofloxacin [Ciloxan] Adverse Reaction (Unknown, Verified 11/28/23 13:31) eye burning Medication List - Last Reconciled 11/28/23 by Darien Perez MD cetirizine 5 mg PO DAILY fluticasone propionate 50 mcg/actuation 2 sprays intranasal DAILY hydrocortisone 2.5% 1 appl topical BID PRN hydroxyzine HCl 25 mg PO TID PRN levonorgestrel (Mirena) intrauterine semaglutide (weight loss) (Wegovy) 0.25 mg (0.5 mL) subcut QWEEK sodium chloride 0.65% (Saline Nasal) 2 sprays intranasal Q2H PRN 30 days Tobacco use date assessed: 09/13/23 Dental Screening Dental Screen Date: 11/28/23 Did you have a dental visit in the last 12 months?: Yes Did you have a dental problem in the last 6 months where you did not have access to dental care?: No Was dental information given to patient?: Patient has dentist HPI cold symptoms HPI Details Patient presents for a sick visit. Reporting symptoms of sinus congestion, sore throat and difficulty swallowing. Low-grade fever. No family member is sick. No recent travel. Patient reports symptoms of malaise and fatigue. [facility] Medical History (Updated 09/13/23 @ 12:19 by Karen Burns MD) Other internal derangements of left knee Left knee pain Anxiety Breast cancer screening Counseling for control, intrauterine device COVID-19 Blepharitis, left eye Surgical History History of ankle surgery History of knee surgery Previous section S/P ACL reconstruction Family History Mother No problems noted. Father No problems noted. Social History Housing: House Alcohol intake: current Patient Tobacco Use Status: Former Tobacco user (10 years ago) Quit Date: 10 years ago Years Smoked: quit 2005 (1-2 years ) e-Cigarette/Vaping Use: Never Used Second Hand Smoke Exposure: No service: No Current occupational status: employed Cognitive needs: No Hearing needs: No Vision needs: No Female Reproductive History Menstrual Age of Menarche: 16 Questionnaire PHQ-9 Over the last 2 weeks, how often have you been bothered by any of the following problems? 1. Little interest or pleasure in doing things: not at all 2. Feeling down, depressed, or hopeless: not at all 3. Trouble falling or staying asleep, or sleeping too much: not at all 4. Feeling tired or having little energy: not at all 5. Poor appetite or overeating: not at all 6. Feeling bad about yourself - or that you are a failure or have let yourself o r your family down: not at all 7. Trouble concentrating on things, such as reading the newspaper or watching television: not at all 8. Moving or speaking so slowly that other people could have noticed. Or the opposite - being so fidgety or restless that you have been moving around a lot more than usual: not at all 9. Thoughts that you would be better off or of hurting yourself in some way: not at all Total score: 0 Depression Screening Interpretation: Negative Depression Screening Done: Yes Source: Developed by Drs. Nick Lock, Caprice Cardoso, Rufino Joyce and colleagues, with an educational abi from [employer]. Thrive Questionnaire Date Thrive assessed: 11/28/23 I am a: Patient What is your living situation today?: I have a steady place to live Within the past 12 months, did the food you bought not last and you didn't have the money to get more?: Never true Within the past 12 months, did you worry whether your food would run out before you got money to buy more?: Never true Do you have trouble paying for medicines?: No Do you have trouble getting transportation to medical appointments?: No Do you have trouble paying your heating and electricity bill?: No Do you have trouble taking care of your child, family member or friend?: No Do you have trouble with day-to-day activities such as bathing, preparing meals, shopping, managing finances, etc.?: No Are you currently unemployed and looking for a job?: No Are you interested in more education?: No Currently or been in a relationship where the following occur: no concerns reported THRIVE Score: 0 AUDIT C Alcohol Use Questionnaire (AUDIT-C) 1. How often do you have a drink containing alcohol?: 2-3 times a week 2. How many drinks containing alcohol do you have on a typical day when you are drinking?: 1 or 2 Total Score: 3 SIRISHA-7 AMB Questionnaire SIRISHA-7 Date SIRISHA - 7 assessed: 11/28/23 Feeling nervous, anxious, or on edge: 0 = Not at all Not being able to stop or control worryin = Not at all Worrying too much about different things: 0 = Not at all Trouble relaxin = Not at all Being so restless that it is hard to sit still: 0 = Not at all Becoming easily annoyed or irritable: 0 = Not at all Feeling afraid as if something awful might happen: 0 = Not at all Total SIRISHA-7 score (0-4 normal; 5-9 mild; 10-14 moderate; 15-21 severe): 0 Source: Developed by Drs. Nick Lock, Caprice Cardoso, Rufino Joyce and colleagues, with an educational abi from [employer]. Physical exam (Primary Care) Tobacco/Smoking Status: Tobacco use Status Tobacco use date assessed 09/13/23 11/28/23 13:20 Patient Tobacco Use Status Former Tobacco user (10 11/28/23 13:20 years ago) e-Cigarette/Vaping Use Never Used 11/28/23 13:20 PHQ-9: PHQ-9 Score PHQ-9: Total score 0 11/28/23 13:20 Depression Screening Interpretation: Negative Thrive Assessment: Date of Thrive Assessment Date Thrive assessed 11/28/23 11/28/23 13:20 Currently or been in a relationship where the following occur: no concerns reported Const General: cooperative and healthy appearing Nutritional Appearance: well nourished Orientation/consciousness: patient oriented x3 Limitations: no limitations HENMT Head: Yes normal to inspection Eyes General: appearance normal, both eyes and all related structures Neck Neck: Yes normal visual inspection Chest Chest palpation & inspection: normal palpation of entire chest wall Resp Effort & Inspection: normal respiratory effort Neuro General: patient oriented x3 Telehealth Telehealth Location of provider rendering services: practice address Location of patient: address on file Patient Identification confirmed using: Name, : Yes Telehealth method: voice only Patient verbally consented to treatment: Yes Patient verbally consented to billing insurance company: Yes Patient informed of any privacy concerns related to visit: Yes Assessment and Plan Assessment & Plan (1) Upper respiratory tract infection: Code(s): J06.9 - Acute upper respiratory infection, unspecified Plan: Antibiotics ordered. Increase fluid intake. Tylenol for aches and pains. If symptoms worsen, follow-up here for a recheck. Medications: New prednisone 60 mg (3 x 20 mg) PO DAILY 9 tabs 0RF azithromycin (Zithromax) 250 mg PO DAILY 5 days 6 tabs 0RF albuterol sulfate 90 mcg/actuation 1 inh inhalation QID PRN 6.7 grams 1RF shortness of breath or wheezing Coding Level of Care Code Est Pt Level 3 (38506) Diagnoses Upper respiratory tract infection J06.9
== END 2023-11-28 15:09 | disposition home or self-care (01) ==
LOC: HO.HMGH 13:16
PROVIDERS: PCP Internal Medicine; Visit Provider Internal Medicine
DX: J06.9 Acute upper respiratory infection, unspecified (principal)
CPT/HCPCS: 99213

== ENCOUNTER 2023-11-28 14:06 | Outpatient (REF) | payer BC, SELFPAY ==
[2023-11-28 14:29] LABS: Binax Internal Control QC Valid; Binax Now Covid-19 Ag Negative (Negative); Binax Performed by: HO.BONILM
== END 2023-11-28 14:07 | disposition home or self-care (01) ==
LOC: HO.HMGCLDS 14:06
PROVIDERS: PCP Internal Medicine; Visit Provider Internal Medicine
DX: Z11.52 Encounter for screening for COVID-19 (principal); J06.9 Acute upper respiratory infection, unspecified
CPT/HCPCS: 87811

== ENCOUNTER 2023-12-28 16:48 | Outpatient (AMB) | payer BC, SELFPAY ==
[2023-12-28 16:50] VITALS: BP 126/80; PULSE 98; O2SAT 99; BMI 36.4
--- NOTE | 2023-12-28 16:50 | A.OFFPC_ITS ---
Vital Signs 12/28/23 16:50 Height 5 ft 4 in Weight 212 lb BMI 36.4 BP 126/80 Blood Pressure Location Lt brachial Position Sitting Pulse 98 Pulse Source Pulse Oximeter Pulse Oximetry (%) 99 Oxygen Delivery Method Room Air Intake Visit Reasons: Weight loss medication Logger Required: No Pressure Testing Technician: Not Required per policy Accompanied by: Self / Same As Patient Allergies ciprofloxacin [Ciloxan] Adverse Reaction (Unknown, Verified 12/28/23 16:51) eye burning Medication List - Last Reconciled 12/28/23 by Karen Burns MD albuterol sulfate 90 mcg/actuation 1 inh inhalation QID PRN fluticasone propionate 50 mcg/actuation 2 sprays intranasal DAILY hydrocortisone 2.5% 1 appl topical BID PRN hydroxyzine HCl 25 mg PO TID PRN levonorgestrel (Mirena) intrauterine semaglutide (weight loss) (Wegovy) 0.25 mg (0.5 mL) subcut QWEEK sodium chloride 0.65% (Saline Nasal) 2 sprays intranasal Q2H PRN 30 days Tobacco use date assessed: 12/28/23 Dental Screening Dental Screen Date: 12/28/23 Did you have a dental visit in the last 12 months?: Yes Did you have a dental problem in the last 6 months where you did not have access to dental care?: No Was dental information given to patient?: Patient has dentist HPI Weight loss medication HPI Details 43-year-old obese female with generalize d anxiety disorder coming in for an acute problem last seen for physical in September 2023. Patient was advised to get the mammogram done. Review of the notes was seen in the [facility] in November 28 for an upper respiratory tract infection prescribed albuterol Zithromax and prednisone. [facility] Medical History (Updated 12/28/23 @ 17:09 by Karen Burns MD) Obesity (BMI 30.0-34.9) Other internal derangements of left knee Left knee pain Anxiety Breast cancer screening Counseling for control, intrauterine device COVID-19 Blepharitis, left eye Surgical History History of ankle surgery History of knee surgery Previous section S/P ACL reconstruction Family History Mother No problems noted. Father No problems noted. Social History Housing: House Alcohol intake: current Patient Tobacco Use Status: Former Tobacco user (10 years ago) Quit Date: 10 years ago Years Smoked: quit 2005 (1-2 years ) e-Cigarette/Vaping Use: Never Used Second Hand Smoke Exposure: No service: No Current occupational status: employed Cognitive needs: No Hearing needs: No Vision needs: No Female Reproductive History Menstrual Age of Menarche: 16 Questionnaire PHQ-9 Over the last 2 weeks, how often have you been bothered by any of the following problems? Depression Screening Interpretation: Negative Depression Screening Done: Yes Source: Developed by Drs. Nick Lock, Caprice Cardoso, Rufino Joyce and colleagues, with an educational abi from [employer]. Thrive Questionnaire Date Thrive assessed: 11/28/23 SIRISHA-7 AMB Questionnaire SIRISHA-7 Date SIRISHA - 7 assessed: 11/28/23 Source: Developed by Drs. Nick Lock, Caprice Cardoso, Rufino Joyce and colleagues, with an educational abi from [employer]. Physical exam (Primary Care) Vital Signs: Last Vital Signs Pulse 98 12/28/23 16:50 BP 126/80 12/28/23 16:50 Pulse Ox 99 12/28/23 16:50 Oxygen Delivery Method Room Air 12/28/23 16:50 BMI result Body Mass Index 36.4 Tobacco/Smoking Status: Tobacco use Status Tobacco use date assessed 12/28/23 12/28/23 16:52 Patient Tobacco Use Status Former Tobacco user (12/28/23 16:52 years ago) e-Cigarette/Vaping Use Never Used 12/28/23 16:52 Depression Screening Interpretation: Negative Thrive Assessment: Date of Thrive Assessment Date Thrive assessed 11/28/23 12/28/23 16:52 Const General: alert; No acute distress Eyes Conjunctivae: conjunctivae normal Resp Auscultation: clear to auscultation bilaterally Cardio Rate: regular rate Rhythm: regular rhythm GI Inspection: Yes normal to inspection Extrem General: Yes normal to inspection and No edema Assessment and Plan Assessment & Plan (1) Obesity (BMI 30.0-34.9): Code(s): E66.9 - Obesity, unspecified (2) LFT elevation: Code(s): R79.89 - Other specified abnormal findings of blood chemistry Plan: Patient is reminded about the liver function test as well as the blood work that was requested. (3) Breast cancer screening by mammogram: Code(s): Z12.31 - Encounter for screening mammogram for malignant neoplasm of breast Plan: Reminded about mammogram (4) Obesity (BMI 30-39.9): Code(s): E66.9 - Obesity, unspecified Plan: Diet and exercise Medications: New phentermine (Adipex-P) must administer 30 minutes before or 1-2 hours after breakfast 37.5 mg PO DAILY 30 tabs 0RF E66.9 - Obesity, unspecified Discontinued semaglutide (weight loss) (Catrachita) administer weeks 1 through 4 of therapy Discontinued Reason: Doctor's Order 0.25 mg (0.5 mL) subcut QWEEK 2 mL 1RF E66.9 - Obesity, unspecified Coding Level of Care Code Est Pt Level 4 (11458) Diagnoses Obesity (BMI 30.0-34.9) E66.9 LFT elevation R79.89 Breast cancer screening by mammogram Z12.31 Obesity (BMI 30-39.9) E66.9
== END 2023-12-28 17:26 | disposition home or self-care (01) ==
PROVIDERS: PCP Internal Medicine; Visit Provider Internal Medicine
DX: R79.89 Other specified abnormal findings of blood chemistry (principal); Z12.31 Encounter for screening mammogram for malignant neoplasm of breast; E66.9 Obesity, unspecified; Z68.36 Body mass index [BMI] 36.0-36.9, adult
CPT/HCPCS: 99214

== ENCOUNTER 2024-03-18 09:19 | Outpatient (AMB) | payer BC, SELFPAY ==
[2024-03-18 09:22] VITALS: BP 118/68; PULSE 75; O2SAT 98; BMI 36.7
--- NOTE | 2024-03-18 09:22 | MHC.PC.OV ---
Vital Signs 03/18/24 09:22 Height 5 ft 4 in Weight 214 lb BMI 36.7 BP 118/68 Blood Pressure Location Lt brachial Position Sitting Pulse 75 Pulse Source Pulse Oximeter Pulse Oximetry (%) 98 Oxygen Delivery Method Room Air Intake Visit Reasons: Weight loss Allergies phentermine Adverse Reaction (Intermediate, Verified 03/18/24 09:22) Anxiety palpitations ciprofloxacin [Ciloxan] Adverse Reaction (Unknown, Verified 03/18/24 09:22) eye burning Medication List - Last Reconciled 03/18/24 by Karen Burns MD albuterol sulfate 90 mcg/actuation 1 inh inhalation QID PRN fexofenadine (Lisbet Allergy) 180 mg PO DAILY fluticasone propionate 50 mcg/actuation 2 sprays intranasal DAILY hydrocortisone 2.5% 1 appl topical BID PRN hydroxyzine HCl 25 mg PO TID PRN liraglutide (weight loss) (Saxenda) inject subcutaneously once daily: week 1 = 0.6 mg; week 2 = 1.2 mg; week 3 = 1.8 mg; week 4 = 2.4 mg; then 3 mg daily subcut sodium chloride 0.65% (Saline Nasal) 2 sprays intranasal Q2H PRN 30 days Tobacco use date assessed: 12/28/23 Dental Screening Dental Screen Date: 03/18/24 Did you have a dental visit in the last 12 months?: Yes Did you have a dental problem in the last 6 months where you did not have access to dental care?: No Was dental information given to patient?: Patient has dentist HPI Weight loss HPI Details 43-year-old obese female with a BMI of 36 coming in for an acute problem. Last seen in December 2023. Patient is a wanted me to refer to weight management. Meanwhile noted on the blood work have elevated liver function tests and was advised to get an ultrasound of the abdomen.. Reminded about the ultrasound, discussed about weight loss and medications and procedures. Discussed about diet discussed about exercise. Patient also has allergies and allergy nasal spray as well as the medication prescription sent in. [facility] Medical History (Updated 03/18/24 @ 09:32 by Karen Burns MD) Obesity (BMI 30.0-34.9) Other internal derangements of left knee Left knee pain Anxiety Breast cancer screening Counseling for control, intrauterine device COVID-19 Blepharitis, left eye Surgical History History of ankle surgery History of knee surgery Previous section S/P ACL reconstruction Family History Mother No problems noted. Father No problems noted. Social History Housing: House Alcohol intake: current Patient Tobacco Use Status: Former Tobacco user (10 years ago) Quit Date: 10 years ago Tobacco use type: Cigarette Years Smoked: quit 2005 (1-2 years ) e-Cigarette/Vaping Use: Never Used Second Hand Smoke Exposure: No service: No Current occupational status: employed Cognitive needs: No Hearing needs: No Vision needs: No Female Reproductive History Menstrual Age of Menarche: 16 Questionnaire PHQ-9 Over the last 2 weeks, how often have you been bothered by any of the following problems? 1. Little interest or pleasure in doing things: not at all 2. Feeling down, depressed, or hopeless: not at all 3. Trouble falling or staying asleep, or sleeping too much: not at all 4. Feeling tired or having little energy: not at all 5. Poor appetite or overeating: not at all 6. Feeling bad about yourself - or that you are a failure or have let yourself or your family down: not at all 7. Trouble concentrating on things, such as reading the newspaper or watching television: not at all 8. Moving or speaking so slowly that other people could have noticed. Or the opposite - being so fidgety or restless that you have been moving around a lot more than usual: not at all 9. Thoughts that you would be better off or of hurting yourself in some way: not at all Total score: 0 Depression Screening Interpretation: Negative Depression Screening Done: Yes Source: Developed by Drs. Nick Lock, Caprice Cardoso, Rufino Joyce and colleagues, with an educational abi from [employer]. Thrive Questionnaire Date Thrive assessed: 03/18/24 I am a: Patient What is your living situation today?: I have a steady place to live Within the past 12 months, did the food you bought not last and you didn't have the money to get more?: Never true Within the past 12 months, did you worry whether your food would run out before you got money to buy more?: Never true Do you have trouble paying for medicines?: No Do you have trouble getting transportation to medical appointments?: No Do you have trouble paying your heating and electricity bill?: No Do you have trouble taking care of your child, family member or friend?: No Do you have trouble with day-to-day activities such as bathing, preparing meals, shopping, managing finances, etc.?: No Are you currently unemployed and looking for a job?: No Are you interested in more education?: No Currently or been in a relationship where the following occur: no concerns reported THRIVE Score: 0 AUDIT C Alcohol Use Questionnaire (AUDIT-C) 1. How often do you have a drink containing alcohol?: 2-3 times a week 2. How many drinks containing alcohol do you have on a typical day when you are drinking?: 1 or 2 Total Score: 3 SIRISHA-7 AMB Questionnaire SIRISHA-7 Date SIRISHA - 7 assessed: 03/18/24 Feeling nervous, anxious, or on edge: 0 = Not at all Not being able to stop or control worryin = Not at all Worrying too much about different things: 0 = Not at all Trouble relaxin = Not at all Being so restless that it is hard to sit still: 0 = Not at all Becoming easily annoyed or irritable: 0 = Not at all Feeling afraid as if something awful might happen: 0 = Not at all Total SIRISHA-7 score (0-4 normal; 5-9 mild; 10-14 moderate; 15-21 severe): 0 Source: Developed by Drs. Nick Lock, Caprice Cardoso, Rufino Joyce and colleagues, with an educational abi from [employer]. Physical exam (Primary Care) Vital Signs: Last Vital Signs Pulse 75 03/18/24 09:22 BP 118/68 03/18/24 09:22 Pulse Ox 98 03/18/24 09:22 Oxygen Delivery Method Room Air 03/18/24 09:22 BMI result Body Mass Index 36.7 Tobacco/Smoking Status: Tobacco use Status Tobacco use date assessed 12/28/23 03/18/24 09:26 Patient Tobacco Use Status Former Tobacco user (10 03/18/24 09:26 years ago) Tobacco use type Cigarette 03/18/24 09:26 e-Cigarette/Vaping Use Never Used 03/18/24 09:26 PHQ-9: PHQ-9 Score PHQ-9: Total score 0 03/18/24 09:26 Depression Screening Interpretation: Negative Thrive Assessment: Date of Thrive Assessment Date Thrive assessed 03/18/24 03/18/24 09:26 Currently or been in a relationship where the following occur: no concerns reported Const General: alert; No acute distress Eyes Conjunctivae: conjunctivae normal Resp Auscultation: clear to auscultation bilaterally Cardio Rate: regular rate Rhythm: regular rhythm GI Inspection: Yes normal to inspection Extrem General: Yes normal to inspection and No edema Assessment and Plan Assessment & Plan (1) Obesity (BMI 30-39.9): Code(s): E66.9 - Obesity, unspecified Plan: Diet and exercise has been referred for weight management. Discussion about the different medications for weight loss. Discussed about keeping active. (2) LFT elevation: Code(s): R79.89 - Other specified abnormal findings of blood chemistry Plan: Patient was reminded about the ultrasound and repeat blood work. Reminded about the ultrasound (3) Breast cancer screening by mammogram: Code(s): Z12.31 - Encounter for screening mammogram for malignant neoplasm of breast Plan: Patient is reminded about mammogram (4) Allergic rhinitis: Code(s): J30.9 - Allergic rhinitis, unspecified Plan: Allergy nasal spray and Lisbet prescription sent in Orders: Orders MM tomosynthesis screening BI Today Z12.31 - Encounter for screening mammogram for malignant neoplasm of breast Medications: New fexofenadine (Lisbet Allergy) 180 mg PO DAILY 30 tabs 5RF J30.9 - Allergic rhinitis, unspecified tirzepatide (weight loss) (Zepbound) 2.5 mg (0.5 mL) subcut QWEEK 4 weeks 2 mL 0RF E66.9 - Obesity, unspecified fluticasone propionate 50 mcg/actuation (Flonase Allergy Relief) administer into each nostril 2 sprays intranasal DAILY 16 grams 3RF J30.9 - Allergic rhinitis, unspecified Discontinued liraglutide (weight loss) (Saxenda) Discontinued Reason: Doctor's Order inject subcutaneously once daily: week 1 = 0.6 mg; week 2 = 1.2 mg; week 3 = 1.8 mg; week 4 = 2.4 mg; then 3 mg daily subcut 15 mL 1RF E66.9 - Obesity, unspecified Coding Level of Care Code Est Pt Level 4 (27776) Diagnoses Obesity (BMI 30-39.9) E66.9 LFT elevation R79.89 Breast cancer screening by mammogram Z12.31 Allergic rhinitis J30.9
== END 2024-03-18 10:07 | disposition home or self-care (01) ==
PROVIDERS: PCP Internal Medicine; Visit Provider Internal Medicine
DX: R79.89 Other specified abnormal findings of blood chemistry (principal); E66.9 Obesity, unspecified; Z68.36 Body mass index [BMI] 36.0-36.9, adult; Z12.31 Encounter for screening mammogram for malignant neoplasm of breast; J30.9 Allergic rhinitis, unspecified
CPT/HCPCS: 99214

== ENCOUNTER 2024-04-08 15:12 | Outpatient (REF) | payer BC, SELFPAY | END 2024-04-08 15:13 | disposition home or self-care (01) | LOC: HO.MAMMO 15:12 | PROVIDERS: PCP Internal Medicine; Visit Provider Internal Medicine | DX: Z12.31 Encounter for screening mammogram for malignant neoplasm of breast (principal) | CPT/HCPCS: 77063; 77067 ==

== ENCOUNTER → 2024-04-08 15:15 | Outpatient (BNV) | payer BC, SELFPAY | PROVIDERS: PCP Internal Medicine; Visit Provider Radiology Diagnostic Radiology | DX: Z12.31 Encounter for screening mammogram for malignant neoplasm of breast (principal) | CPT/HCPCS: 77063; 77067 ==

== ENCOUNTER 2024-08-20 15:37 | Outpatient (AMB) | payer BC, SELFPAY ==
[2024-08-20 15:42] VITALS: BP 124/76; PULSE 86; O2SAT 94; BMI 35.7
--- NOTE | 2024-08-20 15:42 | A.OFFPC_ITS ---
Vital Signs 08/20/24 15:42 Height 5 ft 4 in Weight 208 lb BMI 35.7 BP 124/76 Blood Pressure Location Lt brachial Position Sitting Pulse 86 Pulse Source Pulse Oximeter Pulse Oximetry (%) 94 Oxygen Delivery Method Room Air Intake Visit Reasons: Weight loss med increase Intake Note: Wants new rx of semaglutide from PCP instead of paying $380 for the semaglutide from [facility]. Quality And Reliability Engineer Required: No Accompanied by: Self / Same As Patient Allergies phentermine Adverse Reaction (Intermediate, Verified 08/20/24 15:44) Anxiety palpitations ciprofloxacin [Ciloxan] Adverse Reaction (Unknown, Verified 08/20/24 15:44) eye burning Medication List - Last Reconciled 08/20/24 by Karen Burns MD albuterol sulfate 90 mcg/actuation 1 inh inhalation QID PRN fexofenadine (Lisbet Allergy) 180 mg PO DAILY fluticasone propionate 50 mcg/actuation 2 sprays intranasal DAILY fluticasone propionate 50 mcg/actuation (Flonase Allergy Relief) 2 sprays intranasal DAILY hydrocortisone 2.5% 1 appl topical BID PRN hydroxyzine HCl 25 mg PO TID PRN sodium chloride 0.65% (Saline Nasal) 2 sprays intranasal Q2H PRN 30 days Tobacco use date assessed: 12/28/23 Dental Screening Dental Screen Date: 03/18/24 HPI Weight loss med increase HPI Details 43-year-old obese female with a history of allergic rhinitis and elevated liver function tests coming in for follow-up. Last seen in 03/25/2024. Patient has been started on there is appetite noted 6 lb weight loss. Mammogram is up-to-date April 2024. Patient was requested to have blood work done. PAtient has gone to a compounding pharmacy for the weight loss semaglutide and need script [facility] Medical History (Updated 08/20/24 @ 16:09 by Karen Burns MD) Breast cancer screening by mammogram Vitiligo Obesity (BMI 30.0-34.9) Other internal derangements of left knee Left knee pain Anxiety Breast cancer screening Counseling for control, intrauterine device COVID-19 Blepharitis, left eye Surgical History History of ankle surgery History of knee surgery Previous section S/P ACL reconstruction Family History Mother No problems noted. Father No problems noted. Social History Housing: House Alcohol intake: current Patient Tobacco Use Status: Former Tobacco user (10 years ago) Tobacco use type: Cigarette Years Smoked: quit 2005 (1-2 years ) e-Cigarette/Vaping Use: Never Used Second Hand Smoke Exposure: No service: No Current occupational status: employed Cognitive needs: No Hearing needs: No Vision needs: No Female Reproductive History Menstrual Age of Menarche: 16 Questionnaire PHQ-9 Over the last 2 weeks, how often have you been bothered by any of the following problems? 1. Little interest or pleasure in doing things: not at all 2. Feeling down, depressed, or hopeless: not at all 3. Trouble falling or staying asleep, or sleeping too much: not at all 4. Feeling tired or having little energy: not at all 5. Poor appetite or overeating: not at all 6. Feeling bad about yourself - or that you are a failure or have let yourself or your family down: not at all 7. Trouble concentrating on things, such as reading the newspaper or watching television: not at all 8. Moving or speaking so slowly that other people could have noticed. Or the opposite - being so fidgety or restless that you have been moving around a lot more than usual: not at all 9. Thoughts that you would be better off or of hurting yourself in some way: not at all Total score: 0 Depression Screening Interpretation: Negative Depression Screening Done: Yes Source: Developed by Drs. Nick Lock, Caprice Cardoso, Rufino Joyce and colleagues, with an educational abi from [employer]. Thrive Questionnaire Date Thrive assessed: 03/18/24 Are you currently unemployed and looking for a job?: I choose not to answer this question SIRISHA-7 AMB Questionnaire SIRISHA-7 Date SIRISHA - 7 assessed: 03/18/24 Source: Developed by Drs. Nick Lock, Caprice Cardoso, Rufino Joyce and colleagues, with an educational abi from [employer]. Physical exam (Primary Care) Vital Signs: Last Vital Signs Pulse 86 08/20/24 15:42 BP 124/76 08/20/24 15:42 Pulse Ox 94 08/20/24 15:42 Oxygen Delivery Method Room Air 08/20/24 15:42 BMI result Body Mass Index 35.7 Tobacco/Smoking Status: Tobacco use Status Tobacco use date assessed 12/28/23 08/20/24 15:44 Patient Tobacco Use Status Former Tobacco user (08/20/24 15:44 years ago) Tobacco use type Cigarette 08/20/24 15:44 e-Cigarette/Vaping Use Never Used 08/20/24 15:44 PHQ-9: PHQ-9 Score PHQ-9: Total score 0 08/20/24 15:48 Depression Screening Interpretation: Negative Thrive Assessment: Date of Thrive Assessment Date Thrive assessed 03/18/24 08/20/24 15:44 Const General: alert; No acute distress Eyes Conjunctivae: conjunctivae normal Resp Auscultation: clear to auscultation bilaterally Cardio Rate: regular rate Rhythm: regular rhythm GI Inspection: Yes normal to inspection Extrem General: Yes normal to inspection and No edema Coding Level of Care Code Est Pt Level 4 (47298) Diagnoses Obesity (BMI 30-39.9) E66.9 LFT elevation R79.89 Generalized anxiety disorder F41.1 Assessment & Plan Assessment & Plan (1) Obesity (BMI 30-39.9): Code(s): E66.9 - Obesity, unspecified Category: Medical Plan: Diet and exercise (2) LFT elevation: Code(s): R79.89 - Other specified abnormal findings of blood chemistry Category: Medical Plan: Patient was advised to get the blood work. (3) Generalized anxiety disorder: Code(s): F41.1 - Generalized anxiety disorder Category: Medical Plan: Continue with hydroxyzine as needed Medications: New semaglutide 1 mg (0.75 mL) subcut QWEEK 4 weeks 3 mL 3RF E66.9 - Obesity, unspecified semaglutide 1 mg (0.75 mL) subcut QWEEK 4 weeks 3 mL 3RF E66.9 - Obesity, unspecified
== END 2024-08-20 16:27 | disposition home or self-care (01) ==
PROVIDERS: PCP Internal Medicine; Visit Provider Internal Medicine
DX: R79.89 Other specified abnormal findings of blood chemistry (principal); E66.812 Obesity, class 2; Z68.35 Body mass index [BMI] 35.0-35.9, adult; F41.1 Generalized anxiety disorder

== ENCOUNTER → 2024-08-20 15:37 | Outpatient (BNVA) | payer BC, SELFPAY | PROVIDERS: PCP Internal Medicine; Visit Provider Internal Medicine ==

== ENCOUNTER 2025-05-16 09:50 | Outpatient (AMB) | payer BC, SELFPAY ==
[2025-05-16 09:55] VITALS: BP 120/76; PULSE 73; TEMP 36.3; O2SAT 99; BMI 36.0
--- NOTE | 2025-05-16 09:55 | A.OFFPC_ITS ---
Vital Signs 05/16/25 09:55 Height 5 ft 4 in Weight 210 lb BMI 36.0 BP 120/76 Blood Pressure Location Lt brachial Position Sitting Pulse 73 Pulse Source Pulse Oximeter Temp 97.3 F Temp Source Temporal Artery Scan Pulse Oximetry (%) 99 Oxygen Delivery Method Room Air Intake Visit Reasons: Referral Request Stunner And Shackler Required: No Accompanied by: Self / Same As Patient Allergies phentermine Adverse Reaction (Intermediate, Verified 05/16/25 09:59) Anxiety palpitations ciprofloxacin (Ciloxan) Adverse Reaction (Unknown, Verified 05/16/25 09:59) eye burning Medication List - Last Reconciled 05/16/25 by Karen Burns MD albuterol sulfate 90 mcg/actuation 1 inh inhalation QID PRN fexofenadine (Lisbet Allergy) 180 mg PO DAILY fluticasone propionate 50 mcg/actuation 2 sprays intranasal DAILY fluticasone propionate 50 mcg/actuation (Flonase Allergy Relief) 2 sprays intranasal DAILY hydrocortisone 2.5% 1 appl topical BID PRN hydroxyzine HCl 25 mg PO TID PRN sodium chloride 0.65% (Saline Nasal) 2 sprays intranasal Q2H PRN 30 days tirzepatide (weight loss) (Zepbound) 2.5 mg (0.5 mL) subcut QWEEK Tobacco use date assessed: 05/16/25 Dental Screening Dental Screen Date: 05/16/25 Did you have a dental visit in the last 12 months?: Yes Did you have a dental problem in the last 6 months where you did not have access to dental care?: No Was dental information given to patient?: Patient has dentist HPI Referral Request HPI Details 44-year-old obese female with a history of left anterior knee surgery, generalized anxiety disorder coming in for follow-up last seen in August 20 2024. Patient is due for mammogram. Patient's last blood work was done in 2021 normal blood count normal electrolytes normal renal function noted to have a liver function that is elevated in 2020 that needs to be repeated. liposuction schedule [facility] Medical History (Updated 05/16/25 @ 10:11 by Karen Burns MD) Breast cancer screening by mammogram Vitiligo Obesity (BMI 30.0-34.9) Other internal derangements of left knee Left knee pain Anxiety Breast cancer screening Counseling for control, intrauterine device COVID-19 Blepharitis, left eye Surgical History History of ankle surgery History of knee surgery Previous section S/P ACL reconstruction Family History Mother No problems noted. Father No problems noted. Social History Housing: House Alcohol intake: current Patient Tobacco Use Status: Former Tobacco user Tobacco use type: Cigarette Years Smoked: quit 2005 (1-2 years ) e-Cigarette/Vaping Use: Never Used Second Hand Smoke Exposure: No service: No Current occupational status: employed Cognitive needs: No Hearing needs: No Vision needs: No Female Reproductive History Menstrual Age of Menarche: 16 Questionnaire PHQ-9 Over the last 2 weeks, how often have you been bothered by any of the following problems? 1. Little interest or pleasure in doing things: more than half the days 2. Feeling down, depressed, or hopeless: not at all 3. Trouble falling or staying asleep, or sleeping too much: not at all 4. Feeling tired or having little energy: several days 5. Poor appetite or overeating: several days 6. Feeling bad about yourself - or that you are a failure or have let yourself or your family down: not at all 7. Trouble concentrating on things, such as reading the newspaper or watching television: not at all 8. Moving or speaking so slowly that other people could have noticed. Or the opposite - being so fidgety or restless that you have been moving around a lot more than usual: not at all 9. Thoughts that you would be better off or of hurting yourself in some way: not at all Total score: 4 26757 - PHQ-9 Billing: Yes Source: Developed by Drs. Nick Lock, Caprice Cardoso, Rufino Joyce and colleagues, with an educational abi from [employer]. Thrive Questionnaire Date Thrive assessed: 05/16/25 I am a: Patient What is your living situation today?: I have a steady place to live Within the past 12 months, did the food you bought not last and you didn't have the money to get more?: I choose not to answer this question Within the past 12 months, did you worry whether your food would run out before you got money to buy more?: I choose not to answer this question Do you have trouble paying for medicines?: I choose not to answer this question Do you have trouble getting transportation to medical appointments?: I choose not to answer this question Do you have trouble paying your heating and electricity bill?: I choose not to answer this question Do you have trouble taking care of your child, family member or friend?: I choose not to answer this question Do you have trouble with day-to-day activities such as bathing, preparing meals, shopping, managing finances, etc.?: I choose not to answer this question Are you currently unemployed and looking for a job?: I choose not to answer this question Are you interested in more education?: I choose not to answer this question Please select the resources that you would like help with: None Currently or been in a relationship where the following occur: No concerns repor tanisha THRIVE Score: 0 AUDIT C Alcohol Use Questionnaire (AUDIT-C) 1. How often do you have a drink containing alcohol?: 2-3 times a week 2. How many drinks containing alcohol do you have on a typical day when you are drinking?: 3 or 4 3. How often do you have six or more drinks on one occasion?: Weekly Total Score: 7 SIRISHA-7 AMB Questionnaire SIRISHA-7 Date SIRISHA - 7 assessed: 05/16/25 Feeling nervous, anxious, or on edge: 0 = Not at all Not being able to stop or control worryin = Not at all Worrying too much about different things: 0 = Not at all Trouble relaxin = Not at all Being so restless that it is hard to sit still: 0 = Not at all Becoming easily annoyed or irritable: 0 = Not at all Feeling afraid as if something awful might happen: 0 = Not at all Total SIRISHA-7 score (0-4 normal; 5-9 mild; 10-14 moderate; 15-21 severe): 0 Source: Developed by Drs. Nick Lock, Caprice Cardoso, Rufino Joyce and colleagues, with an educational abi from [employer]. SIRISHA-7 Assessment Billing SIRISHA-7 Assessment Tool: SIRISHA-7 Assessment 60613 Physical exam (Primary Care) Vital Signs: Last Vital Signs Temp 97.3 F 05/16/25 09:55 Pulse 73 05/16/25 09:55 BP 120/76 05/16/25 09:55 Pulse Ox 99 05/16/25 09:55 Oxygen Delivery Method Room Air 05/16/25 09:55 BMI result Body Mass Index 36.0 Tobacco/Smoking Status: Tobacco use Status Tobacco use date assessed 05/16/25 05/16/25 10:00 Patient Tobacco Use Status Former Tobacco user 05/16/25 10:00 Tobacco use type Cigarette 05/16/25 10:00 e-Cigarette/Vaping Use Never Used 05/16/25 10:00 PHQ-9: PHQ-9 Score PHQ-9: Total score 4 05/16/25 10:00 Thrive Assessment: Date of Thrive Assessment Date Thrive assessed 05/16/25 05/16/25 10:00 Currently or been in a relationship where the following occur: No concerns reported Const General: alert; No acute distress HENMT Other: Patient has hypopigmentation areas on the face Eyes Conjunctivae: conjunctivae normal Resp Auscultation: clear to auscultation bilaterally Cardio Rate: regular rate Rhythm: regular rhythm GI Inspection: Yes normal to inspection Extrem General: Yes normal to inspection and No edema Coding Level of Care Code Est Pt Level 4 (73543) Complex EM visit Add On G2211 Diagnoses Obesity (BMI 30-39.9) E66.9 LFT elevation R79.89 Generalized anxiety disorder F41.1 Breast cancer screening by mammogram Z12.31 Melasma L81.1 Additional Codes SIRISHA-7 Assessment Billing - SIRISHA-7 Assessment Tool: SIRISHA-7 Assessment 28769 ([id number]) PHQ-9 - 78281 - PHQ-9 Billing: Yes ([id number]) Assessment & Plan Assessment & Plan (1) Obesity (BMI 30-39.9): Code(s): E66.9 - Obesity, unspecified Category: Medical Plan: Diet and exercise. Zepbound prescription sent in. Patient also wants a referral to some weight management clinic (2) LFT elevation: Code(s): R79.89 - Other specified abnormal findings of blood chemistry Category: Medical Plan: Discussed the reason for getting additional blood work. (3) Generalized anxiety disorder: Code(s): F41.1 - Generalized anxiety disorder Category: Medical Plan: Patient on hydroxyzine. (4) Breast cancer screening by mammogram: Code(s): Z12.31 - Encounter for screening mammogram for malignant neoplasm of breast Category: Medical Plan: Reminded about mammogram (5) Melasma: Code(s): L81.1 - [place] Category: Medical Plan: Patient wants a referral to dermatology Orders: Orders MM tomosynthesis screening BI Today Z12.31 - Encounter for screening mammogram for malignant neoplasm of breast US abdomen complete Today R79.89 - Other specified abnormal findings of blood chemistry Referrals Dermatology Referral L81.1 - [place] Medical Weight Management Referral E66.9 - Obesity, unspecified Medications: New tirzepatide (weight loss) (Zepbound) for 4 weeks 2.5 mg (0.5 mL) subcut QWEEK 2 mL 2RF E66.9 - Obesity, unspecified Discontinued semaglutide Discontinued Reason: Insurance Denied 1 mg (0.75 mL) subcut QWEEK 4 weeks 3 mL 3RF E66.9 - Obesity, unspecified
--- OUTSIDE RECORDS SUMMARY | 2025-05-16 10:12 | XMS_ITS | Patient Health Record ---
Author Organization [facility] Address [address] [place] [address] Care Team Providers Care Tugboat Dispatcher Name Role Phone Karen Burns MD Primary Care Provider Mejia Munoz Jr Unavailable [phone] Reason For Referral No Information Medications Medication SIG (Take, Route, Fr equency, Duration) Notes Start Date End Date Status Omeprazole 20 MG 1 capsule Orally Onc e a day for 30 day(s) 04/08/2016 Active Naphazoline HCl Acti ve Lorazepam Active Flonase Active Problems Problem Type SNOMED Code ICD Code Onset Dates Problem Status W/U Status Risk Notes Problem [id number] Epigastric pain (R10.13) Active confirmed Plan Of Treatment Pending Test Test Name Order Date XR GI SERIES 04/08/2016 Insurance Providers Payer Name Payer Address Payer Phone Subscriber Number Group Number Insured Name Patient Relationship to Insured Coverage Start Date Coverage End Date [facility] [address] [address] [place], [place] [id number] ROBERTO CARLOS SARMIENTO Self - patient is the insured MED[place]ID OF [place] [facility] [address] [place] [address] [id number] ROBERTO CARLOS SARMIENTO Self - patient is the insured Medical (General) History Medical History History ICD Code seasonal allergies anxiety Denies [place],DM,CVA,Lung disease,renal dise ase Surgical History Surgery Date(Month/Year) x3 2004,2007,2011
== END 2025-05-16 10:21 | disposition home or self-care (01) ==
LOC: HO.HMCH 09:51
PROVIDERS: PCP Internal Medicine; Visit Provider Internal Medicine
DX: F41.1 Generalized anxiety disorder (principal); E66.9 Obesity, unspecified; Z68.36 Body mass index [BMI] 36.0-36.9, adult; R79.89 Other specified abnormal findings of blood chemistry; Z12.31 Encounter for screening mammogram for malignant neoplasm of breast; L81.1 Chloasma

== ENCOUNTER → 2025-05-16 09:50 | Outpatient (BNVA) | payer BC, SELFPAY | PROVIDERS: PCP Internal Medicine; Visit Provider Internal Medicine | DX: E66.9 Obesity, unspecified (principal); Z68.36 Body mass index [BMI] 36.0-36.9, adult; R79.89 Other specified abnormal findings of blood chemistry; F41.1 Generalized anxiety disorder; L81.1 Chloasma; Z79.899 Other long term (current) drug therapy; Z13.30 Encounter for screening examination for mental health and behavioral disorders, unspecified | CPT/HCPCS: 96127 ==

== ENCOUNTER 2025-08-12 10:09 | Outpatient (REF) | payer BC, SELFPAY ==
--- NOTE | ~2025-08-12 | US_ITS ---
CLINICAL HISTORY: R79.89 - Other specified abnormal findings of blood chemistry US abdomen complete Comparison: None provided Findings: The pancreatic head and body appear within normal limits. The pancreatic tail is obscured by overlying bowel gas. The aorta and inferior vena cava are normal caliber. The liver is normal in size. Hepatic echogenicity is increased. No focal hepatic mass is seen. There is no intrahepatic bile duct dilatation. The common duct is 4 mm in diameter. The gallbladder is normal. There is no sonographic Murillo sign. The main portal vein is antegrade. The right kidney is 11.8 cm in length. The left kidney is 10.7 cm in length. The spleen is normal. IMPRESSION: 1. Hepatic steatosis. This document has been electronically signed by: Joao Walden on 08/13/2025 07:38:59
--- OUTSIDE RECORDS SUMMARY | 2025-08-12 12:02 | XMS_ITS | Patient Health Record ---
Author Organization [facility] Address [address] [place] [address] Care Team Providers Care Job Printer Name Role Phone Karen Burns MD Primary Care Provider Mejia Munoz Jr Unavailable Reason For Referral No Information Medications Medication SIG (Take, Route, Fr equency, Duration) Notes Start Date End Date Status Omeprazole 20 MG 1 capsule Orally Onc e a day for 30 day(s) 04/08/2016 Active Naphazoline HCl Acti ve Lorazepam Active Flonase Active Problems Problem Type SNOMED Code ICD Code Onset Dates Problem Status W/U Status Risk Notes Problem [id number] Epigastric pain (R10.13) Active confirmed Plan Of Treatment Pending Test Test Name Order Date XR GI SERIES 04/08/2016 Insurance Providers Payer Name Payer Address Payer Phone Subscriber Number Group Number Insured Name Patient Relationship to Insured Coverage Start Date Coverage End Date [facility] [address] [address] [place], [place] [id number] ROBERTO CARLOS SARMIENTO Self - patient is the insured [facility]ICAID [facility] [address] [place] [address] [id number] ROBERTO CARLOS SARMIENTO Self - patient is the insured Medical (General) History Medical History History ICD Code seasonal allergies anxiety Denies [place],DM,CVA,Lung disease,renal dise ase Surgical History Surgery Date(Month/Year) x3 2004,2007,2011
== END 2025-08-12 10:10 | disposition home or self-care (01) ==
LOC: HO.HMGCX 10:09
PROVIDERS: PCP Internal Medicine; Visit Provider Internal Medicine
DX: R79.89 Other specified abnormal findings of blood chemistry (principal)
CPT/HCPCS: 76700

== ENCOUNTER → 2025-08-12 10:11 | Outpatient (BNV) | payer BC, SELFPAY | PROVIDERS: PCP Internal Medicine; Visit Provider Radiology Vascular & Interventional Radiology | DX: K76.0 Fatty (change of) liver, not elsewhere classified (principal) | CPT/HCPCS: 76700 ==

== ENCOUNTER 2025-08-26 15:33 | Outpatient (AMB) | payer BC, SELFPAY ==
--- NOTE | 2025-08-26 15:59 | MHC.PC.OV ---
Vital Signs 08/26/25 16:00 Height 5 ft 4 in Weight 208 lb 6 oz BMI 35.8 BP 130/64 Blood Pressure Location Lt brachial Position Sitting Pulse 84 Pulse Source Pulse Oximeter Temp 97.5 F Temp Source Temporal Artery Scan Pulse Oximetry (%) 97 Oxygen Delivery Method Room Air Intake Visit Reasons: LFT elevated Intake Note: Patient is here to follow up on LFT elevated. Thermal Technician Required: No Exercise Teacher: Not Required per policy Accompanied by: Self / Same As Patient Allergies phentermine Adverse Reaction (Intermediate, Verified 08/26/25 16:00) Anxiety palpitations ciprofloxacin (Ciloxan) Adverse Reaction (Unknown, Verified 08/26/25 16:00) eye burning Medication List - Last Reconciled 08/26/25 by Karen Burns MD albuterol sulfate 90 mcg/actuation 1 inh inhalation QID PRN fexofenadine (Lisbet Allergy) 180 mg PO DAILY fluticasone propionate 50 mcg/actuation (Flonase Allergy Relief) 2 sprays intranasal DAILY hydrocortisone 2.5% 1 appl topical BID PRN hydroxyzine HCl 25 mg PO TID PRN sodium chloride 0.65% (Saline Nasal) 2 sprays intranasal Q2H PRN 30 days tirzepatide (weight loss) (Zepbound) 2.5 mg (0.5 mL) subcut QWEEK Tobacco use date assessed: 08/26/25 Dental Screening Dental Screen Date: 05/16/25 [facility] Medical History (Updated 08/13/25 @ 13:05 by Karen Burns MD) LFT elevation Breast cancer screening by mammogram Vitiligo Obesity (BMI 30.0-34.9) Other internal derangements of left knee Left knee pain Anxiety Breast cancer screening Counseling for control, intrauterine device COVID-19 Blepharitis, left eye Surgical History History of ankle surgery History of knee surgery Previous section S/P ACL reconstruction Family History Mother No problems noted. Father No problems noted. Social History (Updated 08/26/25 @ 16:06 by NARDA Smith) Housing: House Alcohol intake: current Alcohol intake frequency: 0-2 drinks per day Patient Tobacco Use Status: Former Tobacco user Tobacco use type: Cigarette Years Smoked: quit 2005 (1-2 years ) e-Cigarette/Vaping Use: Currently Using Frequency of e-Cigarette/Vaping Use: Daily Second Hand Smoke Exposure: Yes service: No Current occupational status: employed Cognitive needs: No Hearing needs: No Vision needs: No Female Reproductive History Menstrual Age of Menarche: 16 Questionnaire Thrive Questionnaire Date Thrive assessed: 05/16/25 I am a: Patient What is your living situation today?: I have a steady place to live Within the past 12 months, did the food you bought not last and you didn't have the money to get more?: I choose not to answer this question Within the past 12 months, did you worry whether your food would run out before you got money to buy more?: I choose not to answer this question Do you have trouble paying for medicines?: I choose not to answer this question Do you have trouble getting transportation to medical appointments?: I choose not to answer this question Do you have trouble paying your heating and electricity bill?: I choose not to answer this question Do you have trouble taking care of your child, family member or friend?: I choose not to answer this question Do you have trouble with day-to-day activities such as bathing, preparing meals, shopping, managing finances, etc.?: I choose not to answer this question Are you currently unemployed and looking for a job?: I choose not to answer this question Are you interested in more education?: I choose not to answer this question Please select the resources that you would like help with: None Currently or been in a relationship where the following occur: No concerns reported THRIVE Score: 0 SIRISHA-7 AMB Questionnaire SIRISHA-7 Date SIRISHA - 7 assessed: 05/16/25 Source: Developed by Drs. Nick Lock, Caprice Cardoso, Rufino Joyce and colleagues, with an educational abi from [employer]. Physical exam (Primary Care) Vital Signs: Last Vital Signs Temp 97.5 F 08/26/25 16:00 Pulse 84 08/26/25 16:00 BP 130/64 08/26/25 16:00 Pulse Ox 97 08/26/25 16:00 Oxygen Delivery Method Room Air 08/26/25 16:00 BMI result Body Mass Index 35.8 Tobacco/Smoking Status: Tobacco use Status Tobacco use date assessed 08/26/25 08/26/25 16:05 Patient Tobacco Use Status Former Tobacco user 08/26/25 16:05 Tobacco use type Cigarette 08/26/25 16:05 e-Cigarette/Vaping Use Currently Using 08/26/25 16:07 Thrive Assessment: Date of Thrive Assessment Date Thrive assessed 05/16/25 08/26/25 16:05 Currently or been in a relationship where the following occur: No concerns reported Const General: alert; No acute distress Eyes Conjunctivae: conjunctivae normal Resp Auscultation: clear to auscultation bilaterally Cardio Rate: regular rate Rhythm: regular rhythm GI Inspection: Yes normal to inspection Extrem General: Yes normal to inspection and No edema Coding Level of Care Code Est Pt Level 4 (18520) Diagnoses Obesity (BMI 30-39.9) E66.9 Hepatic steatosis K76.0 Generalized anxiety disorder F41.1 Assessment & Plan Assessment & Plan (1) Obesity (BMI 30-39.9): Code(s): E66.9 - Obesity, unspecified Category: Medical Plan: Diet and exercise presently on tirzepatide (2) Hepatic steatosis: Comment: August 2025 Code(s): K76.0 - Fatty (change of) liver, not elsewhere classified Category: Medical Plan: Low-fat diet and exercise (3) Generalized anxiety disorder: Code(s): F41.1 - Generalized anxiety disorder Category: Medical Plan: Stable and continue with present medication Plan History of Present Illness The patient is a 44-year-old female presenting for follow-up of hepatic steatosis and generalized anxiety disorder. The patient has a history of hepatic steatosis, identified through an ultrasound and elevated liver function tests. The liver function tests showed values of 72 and 131, which were lower than the previous year. Further blood work was advised but has not yet been completed. The patient also has generalized anxiety disorder, which is part of her ongoing medical management. The patient is obese and is on a low-fat diet and exercise regimen, along with Tirzepatide for weight management. The importance of weight loss in managing hepatic steatosis and overall health has been emphasized. Health Maintenance - Mammogram due: Last performed in April 2024 - Blood work advised but not yet completed - Low-fat diet and exercise regimen for weight management Social History - Exercise: Engaged in a low-fat diet and exercise regimen Review of Systems Physical Exam Results - Labs: Elevated liver function tests with values of 72 and 131 - Imaging: Ultrasound showing hepatic steatosis Plan Patient was informed and verbally consented to the use of an ambient scribe for clinic note documentation during this visit. 1. Generalized Anxiety Disorder The patient will continue with current management for generalized anxiety disorder. 2. Hepatic Steatosis The patient is advised to continue with a low-fat diet and exercise regimen to manage hepatic steatosis. Further blood work is recommended to monitor liver function. 3. Obesity The patient is prescribed Tirzepatide for weight management and is advised to maintain a low-fat diet and regular exercise. Discussion Notes I discussed with the patient the management of hepatic steatosis, emphasizing the importance of a low-fat diet and regular exercise. We also reviewed the need for further blood work to monitor liver function. The patient was informed about the continuation of current management for generalized anxiety disorder. Additionally, we discussed the use of Tirzepatide for weight management and the importance of lifestyle modifications to support weight loss. Patient Instructions - Continue with a low-fat diet and regular exercise to manage hepatic steatosis and support weight loss. - Complete the recommended blood work to monitor liver function. - Continue current management for generalized anxiety disorder. - Follow up on the use of Tirzepatide for weight management. Medications: Refilled tirzepatide (weight loss) (Zepbound) for 4 weeks 2.5 mg (0.5 mL) subcut QWEEK 2 mL 2RF E66.9 - Obesity, unspecified
[2025-08-26 16:00] VITALS: BP 130/64; PULSE 84; TEMP 36.4; O2SAT 97; BMI 35.8
--- OUTSIDE RECORDS SUMMARY | 2025-08-26 20:37 | XMS_ITS | Patient Health Record ---
Author Organization [facility] Address [address] [place] [address] Care Team Providers Care Associate Publisher Name Role Phone Karen Burns MD Primary Care Provider Mejia Munoz Jr Unavailable Reason For Referral No Information Medications Medication SIG (Take, Route, Fr equency, Duration) Notes Start Date End Date Status Omeprazole 20 MG 1 capsule Orally Onc e a day; Duration: 30 day(s) 04/08/2016 Active Naphazoline HCl Acti ve Lorazepam Active Flonase Active Problems Problem Type SNOMED Code ICD Code Onset Dates Problem Status W/U Status Risk Notes Problem Epigastric pain (09253289) Epigastric pain (R10.13) Active confirmed Plan Of Treatment Pending Test Test Name Order Date XR GI SERIES 04/08/2016 Insurance Providers Payer Name Payer Address Payer Phone Subscriber Number Group Number Insured Name Patient Relationship to Insured Coverage Start Date Coverage End Date [facility] [employer] [facility] [address] [address] [place], [place] [id number] ROBERTO CARLOS SARMIENTO Self - patient is the insured MEDICAID [facility] [address] [place] [address] [id number] ROBERTO CARLOS SARMIENTO Self - patient is the insured Medical (General) History Medical History History ICD Code seasonal allergies anxiety Denies [place],DM,CVA,Lung disease,renal dise ase Surgical History Surgery Date(Month/Year) x3 2004,2007,2011
== END 2025-08-26 16:20 | disposition home or self-care (01) ==
LOC: HO.HMCH 15:34
PROVIDERS: PCP Internal Medicine; Visit Provider Internal Medicine
DX: K76.0 Fatty (change of) liver, not elsewhere classified (principal); E66.9 Obesity, unspecified; Z68.38 Body mass index [BMI] 38.0-38.9, adult; F41.1 Generalized anxiety disorder